=== PATIENT | female | born 1995 | race Caucasian/White ===

== ENCOUNTER 2017-09-28 13:19 | Emergency (ER) | payer MEDICAID, SELFPAY ==
[2017-09-28 13:28] VITALS: BP 128/70; PULSE 89; RESP 16; TEMP 36.5; O2SAT 99
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
[2017-09-28] MEDS: Lidocaine 2% Viscous 15 ML CUP PO (13:57)
[2017-09-28] MEDS: Normal Saline 1,000 ML 1000 ML IV (14:38)
[2017-09-28] MEDS: Omnipaque 350 MG/ML 100 ML BTL IJ (14:39)
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
== END 2017-09-28 16:01 | disposition home or self-care (01) ==
LOC: ER 11-25 03:49
PROVIDERS: Emergency Provider Emergency Medicine; PCP Nurse Practitioner Family
DX: T76.11XA Adult physical abuse, suspected, initial encounter (principal); S01.512A Laceration without foreign body of oral cavity, initial encounter; M54.2 Cervicalgia; J32.0 Chronic maxillary sinusitis; Y04.8XXA Assault by other bodily force, initial encounter
CPT/HCPCS: 70491; 90471; 96360; 99285; 99284; J3490

== ENCOUNTER 2018-05-01 19:02 | Outpatient (REF) | payer MEDICAID, SELFPAY ==
[2018-05-01 13:45] LABS: Abs Immature Grans 0.04 k/cumm (0.0-0.09); Absolute Basophil Count 0.05 k/cumm (0.0-0.2); Absolute Eosinophil Count 0.21 k/cumm (0.0-0.7); Absolute Lymphocyte Count 3.61 k/cumm (1.2-3.4); Absolute Monocyte Count 0.52 k/cumm (0.11-0.7); Basophils % 0.5; Eosinophils % 2.3; HCT 41.8 % (36.0-46.0); HGB 14.2 g/dL (12.0-15.5); Immature Grans % 0.4; Lymphocytes % 38.7; Mean Corpuscular Hemoglobin 31.7 pg (27.0-33.0); Mean Corpuscular Volume 93.3 fL (80-95); Mean Platelet Volume 10.7 fL (8.0-11.0); Monocytes % 5.6; Neutrophils % 52.5; Platelet Count 336 x1000/uL (130-400); RBC 4.48 m/cumm (4.00-5.20); RBC Distribution Width 12.4 % (11.7-14.6); White Blood Cell Count 9.33 k/cumm (4.4-10.8)
[2018-05-01 14:36] LABS: ALT 26 U/L (12-78); AST 19 U/L (15-37); Albumin 4.1 g/dL (3.4-5.0); Alkaline Phosphatase 74 U/L (46-116); BUN 10 mg/dL (7-18); Bilirubin, Total 0.4 mg/dL (0.2-1.0); CREATININE 0.72 mg/dL (0.55-1.02); Calcium 9.6 mg/dL (8.5-10.1); Chloride 104 mmol/L (98-107); Glucose 90 mg/dL (70-100); Potassium 4.3 mmol/L (3.5-5.1); Sodium 143 mmol/L (136-145); TSH (W/Ref FT4) 1.69 uIU/mL (0.358-3.74); Total Protein 7.2 g/dL (6.4-8.2); Vitamin B12 618 pg/mL (193-986)
== END 2018-05-01 19:22 ==
LOC: NCHCN 19:02
PROVIDERS: PCP Nurse Practitioner Family; Visit Provider Nurse Practitioner Family
DX: F41.9 Anxiety disorder, unspecified (principal); Z86.69 Personal history of other diseases of the nervous system and sense organs; F32.9 Major depressive disorder, single episode, unspecified
CPT/HCPCS: 80053; 82607; 84443; 85025

== ENCOUNTER 2018-05-13 11:00 | Outpatient (CLI) | payer MEDICAID, SELFPAY ==
--- NOTE | 2018-05-21 15:12 | PDOC.EEG ---
EEG: [facility] Department of Neurology LONG-TERM AMBULATORY EEG REPORT Date of Recordin05/13/18 at 10:04:18 to 05/16/18 at 12:42:03 Interpreting Physician: Dr. Carol Ann Gates PCP/Referring Provider: Marquita Mcmanus NP Reason for study: Ms. 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 Current Medications: albuterol sulfate [ProAir HFA] 2 inh INHALATION Q6H PRN PRN 09/27/15 valacyclovir 1,000 mg PO DAILY #30 tab-cap 04/17/16 PNV cmb#95-ferrous fumarate-FA [] 1 ea PO DAILY #90 tab-cap 05/07/17 Dexilant 30 mg PO DAILY #30 tab-cap 08/14/17 atomoxetine 25 mg capsule 25 mg PO DAILY cap 04/24/18 levetiracetam 500 mg tablet 500 mg PO BID #60 tab 05/01/18 METHODS: An 18-channel digitized electroencephalogram was recorded in the ambulatory setting with video. The 10/20 international system of electrode placement was used and bipolar and referential electrode montages were recorded. In addition to EEG the patient was monitored for EKG and by video. Activation procedures of photic stimulation and hyperventilation were performed if applicable. The duration of the recording was ~74 hours, however, only ~52 hours of EEG was captured due to battery issues. DESCRIPTION OF EEG: Waking background activity: During maximal wakefulness a 9-Hz posterior background rhythm was present which was well-modulated, symmetrical, reactive to eye opening, and of moderate voltage. Faster frequencies were present in the bilateral anterior head regions. There was a normal anterior-posterior voltage gradient. Drowsy and sleeping background activity: During drowsiness, there was attenuation of the posterior dominant background rhythm and vertex waves. Normal stage II and III sleep was present with symmetrical sleep spindles, K-complexes, and vertex waves with slowing of the background rhythm to delta/theta frequencies. REM sleep manifested by rapid lateral eye movements and faster background rhythms was recorded. Arousal was unremarkable. During sleep, she had bursts of moderate-amplitude, polymorphic generalized alpha activity lasting 1-6 seconds in duration. This was not epileptiform, but appears to be some sore of sleep variant. Interictal abnormalities: none. Ictal findings: No events reported or recorded. Activating Procedures: Photic stimulation was performed which produced a symmetrical posterior driving response at various flash frequencies. Hyperventilation was performed with moderate effort and produced no physiological slowing of the background. EKG: EKG revealed normal sinus rhythm while awake with sinus bradycardia during sleep. INTERPRETATION: This long-term EEG is normal during the awake and sleep states as well as during the activation procedures. No events were captured. 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 Epilepsy remains a clinical diagnosis and a normal EEG does not rule out epilepsy. Clinical correlation is advised. Carol Ann Gates MD
--- NOTE | 2018-05-21 15:15 | PDOC.EEG_ITS ---
EEG: [facility] Department of Neurology LONG-TERM AMBULATORY EEG REPORT Date of Recordin05/13/18 at 10:04:18 to 05/16/18 at 12:42:03 Interpreting Physician: Dr. Carol Ann Gates PCP/Referring Provider: Marquita Mcmanus NP Reason for study: Ms. 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 Current Medications: albuterol sulfate [ProAir HFA] 2 inh INHALATION Q6H PRN PRN 09/27/15 valacyclovir 1,000 mg PO DAILY #30 tab-cap 04/17/16 PNV cmb#95-ferrous fumarate-FA [] 1 ea PO DAILY #90 tab-cap 05/07/17 Dexilant 30 mg PO DAILY #30 tab-cap 08/14/17 atomoxetine 25 mg capsule 25 mg PO DAILY cap 04/24/18 levetiracetam 500 mg tablet 500 mg PO BID #60 tab 05/01/18 METHODS: An 18-channel digitized electroencephalogram was recorded in the ambulatory setting with video. The 10/20 international system of electrode placement was used and bipolar and referential electrode montages were recorded. In addition to EEG the patient was monitored for EKG and by video. Activation procedures of photic stimulation and hyperventilation were performed if applicable. The duration of the recording was ~74 hours, however, only ~52 hours of EEG was captured due to battery issues. DESCRIPTION OF EEG: Waking background activity: During maximal wakefulness a 9-Hz posterior background rhythm was present which was well-modulated, symmetrical, reactive to eye opening, and of moderate voltage. Faster frequencies were present in the bilateral anterior head regions. There was a normal anterior-posterior voltage gradient. Drowsy and sleeping background activity: During drowsiness, there was attenuation of the posterior dominant background rhythm and vertex waves. Normal stage II and III sleep was present with symmetrical sleep spindles, K- complexes, and vertex waves with slowing of the background rhythm to delta/theta frequencies. REM sleep manifested by rapid lateral eye movements and faster background rhythms was recorded. Arousal was unremarkable. During sleep, she had bursts of moderate-amplitude, polymorphic generalized alpha activity lasting 1-6 seconds in duration. This was not epileptiform, but appears to be some sore of sleep variant. Interictal abnormalities: none. Ictal findings: No events reported or recorded. Activating Procedures: Photic stimulation was performed which produced a symmetrical posterior driving response at various flash frequencies. Hyperventilation was performed with moderate effort and produced no physiological slowing of the background. EKG: EKG revealed normal sinus rhythm while awake with sinus bradycardia during sleep. INTERPRETATION: This long-term EEG is normal during the awake and sleep states as well as during the activation procedures. No events were captured. 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 Epilepsy remains a clinical diagnosis and a normal EEG does not rule out epilepsy. Clinical correlation is advised. Carol Ann Gates MD
== END 2018-05-13 11:20 ==
PROVIDERS: PCP Nurse Practitioner Family; Visit Provider Psychiatry & Neurology Neurology
DX: R56.9 Unspecified convulsions (principal)
CPT/HCPCS: 95953

== ENCOUNTER 2018-08-29 13:42 | Emergency (ER) | payer MEDICAID, SELFPAY ==
[2018-08-29 13:46] VITALS: BP 126/88; PULSE 106; RESP 14; TEMP 36.1; O2SAT 96
--- NOTE | 2018-08-29 14:01 | DI.CT_ITS ---
SYMPTOMS/DIAGNOSIS: C-SPINE TENDERNESS S/P FALL CT BRAIN, NONCONTRAST: Comparison is 06/24/15. There is a normal ibarra-white matter differentiation. The ventricles are intact. The basilar cisterns are patent. No acute intracranial hemorrhage, midline shift or mass effect is identified. The visualized paranasal sinuses show no fluid levels. The mastoid air cells are well pneumatized. The calvarium is intact. IMPRESSION: No acute intracranial process. CT SCAN OF THE CERVICAL SPINE: Multiple contiguous axial images of the cervical spine were obtained. Sagittal and coronal reformatted images were evaluated on the Siemens workstation. There are no priors for comparison. There is normal alignment of the cervical spine. No acute fractures or subluxations are seen. The soft tissues are unremarkable. The lung apices are clear. IMPRESSION: No acute fractures or subluxations in the cervical spine. The findings were discussed with the Emergency Department on the date of the examination.
--- NOTE | 2018-08-29 14:03 | ED.GENADUL_ITS ---
Discharge Plan Disposition Patient Disposition: HOME Discharge Details Chief Complaint: Nk/Back Pain Clinical Impression: Concussion, Cervical strain Primary Care Provider: Jose Schroeder ED Provider: Cj Woodard Home Meds and New Rx's Prescriptions: New ondansetron 4 mg tablet,disintegrating 4 mg PO BID Qty: 5 RF: 0 Continued atomoxetine [Strattera] 25 mg capsule 25 mg PO BID RF: 0 valacyclovir 1,000 MG tablet 1,000 mg PO DAILY Qty: 30 RF: 5 PNV cmb#95-ferrous fumarate-FA [] 1 EACH tablet 1 ea PO DAILY Qty: 90 RF: 4 Dexilant 30 MG capsule,biphase delayed releas 30 mg PO DAILY Qty: 30 RF: 5 levetiracetam 500 mg tablet 500 mg PO BID Qty: 60 RF: 11 albuterol sulfate [ProAir HFA] 200 PUFF HFA aerosol inhaler 2 inh Inhalation Q6H PRN PRNRF: 0 Discharge Instructions Instructions: Cervical Strain (ED), Concussion (ED) Additional Instructions: Continue to use [id number]-[id number] pain medication as needed for discomfort, stay well-hydrated, and rest over the next 3 days. Slowly advance activity as tolerated and return to the emergency department for any new or significant worsening of symptoms, severe headaches, persistent vomiting. Otherwise if not improving over the next week follow-up with your primary care provider for reassessment Referrals: Jose Schroeder, [employer] [Primary Care Provider] - (As needed for reassessment) Discharge Data Discharge Date/Time-TO BE ENTERED AT DEPARTURE: 08/29/18 14:51 Medical Decision Making Patient presenting the emergency department for chief complaint of neck pain. Patient states that yesterday evening she was drinking and slipped on a toy and fell hitting her head and having approximately a 2-minute loss of consciousness. Patient states that she remembers having some drinks and getting ready for the shower but denies any recollection of the fall, or the rest the evening is not completely easy to remember. Patient woke up this morning and her roommate informed her of the fall, of the loss of consciousness. Patient states that she has been nauseous and have headache since the event occurred but otherwise denies any numbness tingling, neurological deficits. Physical exam shows midline tenderness to C4-C5 with other otherwise diffuse tenderness throughout the cervical spine and left trapezius. No thoracic spine tenderness, no focal neurological deficits, cranial nerves II through XII intact, otherwise unremarkable exam with no obvious trauma noted. Given the patient was intoxicated, had fall, and significant loss of consciousness I do feel that radiological imaging of the head and C-spine is warranted. Patient was C- collared which I feel is appropriate. Pending results patient given acetaminophen and zofran. Review of radiological imaging and speaking with radiologist shows no acute findings. I feel that patient more likely has cervical strain and concussion. Patient encouraged to take nded-wev-[id number] pain medication as needed and was prescribed Zofran to help with her nausea. Patient was given a soft collar to help with cervical symptoms. Return precautions were discussed. After discussion of diagnosis and plan of care patient has no further needs, questions, or concerns and states clear understanding to return to the emergency department for any worsening symptoms. HPI General Mode of arrival: ambulatory . Date/Time Provider Initiated Documentation: 08/29/18 13:57 . Limitations to Documentation: no limitations . Information obtained by: patient and RN notes reviewed . History of Present Illness 23 year old F presents to the emergency department with the chief complaint of neck pain, headache, described as moderate, with intensity rated at 8. Quality is described as sharp, and is localized to the neck. Patient reports radiation to (lateral). Patient started experiencing this hour(s) (21) and it has been constant. Patient did receive the following treatments prior to arrival, none Related Data Home Medications Medication Instructions Recorded Confirmed albuterol sulfate [ProAir HFA] 2 inh INHALATION Q6H PRN PRN 09/27/15 08/29/18 valacyclovir 1,000 mg PO DAILY #30 tab-cap 04/17/16 08/29/18 PNV cmb#95-ferrous fumarate-FA 1 ea PO DAILY #90 tab-cap 05/07/17 04/24/18 [] Dexilant 30 mg PO DAILY #30 tab-cap 08/14/17 08/29/18 atomoxetine 25 mg capsule 25 mg PO BID cap 04/24/18 08/29/18 levetiracetam 500 mg tablet 500 mg PO BID #60 tab 05/01/18 08/29/18 ondansetron 4 mg PO BID #5 tab 08/29/18 Previous Rx's Medication Instructions Recorded PNV cmb#95-ferrous fumarate-FA 1 ea PO DAILY #90 tab-cap 05/07/17 [] Dexilant 30 mg PO DAILY #30 tab-cap 08/14/17 levetiracetam 500 mg tablet 500 mg PO BID #60 tab 05/01/18 ondansetron 4 mg PO BID #5 tab 08/29/18 Allergies Allergy/AdvReac Type Severity Reaction Status Date / Time aspirin AdvReac Intermediate GI Bleeding Unverified 08/29/18 14:00 codeine AdvReac Intermediate Nausea Unverified 08/29/18 14:00 General Stated Complaint: Headache SUNDAR: 4 Review of Systems Constitutional Reports chills, Reports fever(s) and Denies frequent falls Eyes Denies change in vision ENT Reports neck pain Cardiovascular Denies chest pain and Denies dyspnea Respiratory Denies dyspnea Gastrointestinal Denies abdominal pain and Reports nausea Musculoskeletal Reports as per HPI, Denies muscle weakness, Reports neck pain, Denies numbness, Reports stiffness and Denies tingling Neurologic Reports as per HPI, Denies frequent falls, Denies focal weakness, Reports memory loss, Denies numbness and Denies tingling Psychiatric Reports memory loss [facility] Medical History ADD (attention deficit disorder) (Acute) Asthma (Chronic) Cognitive developmental delay (Acute) Depression (Chronic) Depression (Resolved) Depression (Resolved 12/23/13) ETOH abuse (Chronic) Focal epilepsy (Acute) Genital herpes (Resolved) Heartburn HSV infection (Chronic) Hx of gonorrhea Hx of herpes genitalis (Acute 12/23/13) Surgical History EGD - MAC (05/11/16) No history of previous surgery (Acute) Family History Other Asthma Depression Diabetes Seizures Social History Smoking/Tobacco Use Status: Current every day Tobacco Type: cigarettes Alcohol Intake: current Alcohol Intake frequency: other Drug use: Never Substance use type: does not use Household members: significant other Number of Children: 1 Do you feel safe in your relationship?: Yes Additional Social history: She has one child in the custody of her mother. Her fiance has 3 children (not in his custody). She binge drinks alcohol. Exam [facility] Head: normal to inspection, no palpable skull fracture, normocephalic, atraumatic, no abrasions, no Fernandez's sign, no lacerations, no palpable skull fracture, no raccoon eyes, no scalp tenderness and No periorbital ecchymosis Ears: hearing grossly normal bilaterally, external ears normal and TM's normal bilaterally General nose exam: external nose normal Mouth: oral mucosae normal, lip normal and tongue normal Throat: posterior oropharynx normal, tonsils normal and uvula midline Eyes General: appearance normal, both eyes and all related structures Visual Bernard: normal visual bernard by confrontation Alignment and Position: alignment normal Periorbital: periorbital findings normal Eyelids: eyelids normal Pupils: PERRL EOM: EOM intact bilaterally Neck Neck: normal visual inspection, no lymphadenopathy, trachea midline, supple and no anterior neck swelling Resp Effort & Inspection: normal respiratory effort and able to speak in complete sentences Auscultation: clear to auscultation bilaterally Cardio Rate: regular rate Rhythm: regular rhythm Heart Sounds: S1 normal and S2 normal Back/Spine/Pelvis Cervical Spine: normal cervical lordosis, collar present, cervical muscular tenderness (left sided), cervical spinal tenderness (Diffuse but most tender C4&5) and No step off deformity Thoracic/Lumbar Spine: thoracic and lumbar spine normal to inspection, No paraspinal tenderness and No thoracic spinal tenderness Neuro General: alert, awake, oriented x3, gait normal, tone normal, moves all extremities, normal light touch, pain and propioception, no focal motor deficits, CN's II-XI intact bilaterally and not confused Course Vital Signs Temperature 36.1 C L 08/29/18 13:46 Pulse 106 H 08/29/18 13:46 Respiratory Rate 14 08/29/18 13:46 Blood Pressure 126/88 08/29/18 13:46 Pulse Oximetry 96 08/29/18 13:46 Temperature 36.1 C L 08/29/18 13:46 Temperature Source Temporal Artery Scan 08/29/18 13:46 Pulse 106 H 08/29/18 13:46 Respiratory Rate 14 08/29/18 13:46 Respiratory Effort 08/29/18 13:46 Blood Pressure 126/88 08/29/18 13:46 Pulse Oximetry 96 08/29/18 13:46 Oxygen Delivery Method Room Air 08/29/18 13:46 Oxygen Flow Rate 0 08/29/18 13:46 Pain Level 8 08/29/18 13:58
[2018-08-29] MEDS: Acetaminophen 500 MG TAB 1000 MG PO (14:27)
[2018-08-29] MEDS: Ondansetron O.D.T. 4 MG TABEF PO (14:27)
--- NOTE | 2018-08-29 14:30 | NUR.NOTE ---
pt medicated as per mdo provided with ice pack Nursing Note:
[2018-08-29 14:52] VITALS: BP 122/68; PULSE 92; RESP 18; TEMP 36.6; O2SAT 98
== END 2018-08-29 14:51 | disposition home or self-care (01) ==
LOC: ER 14:45
PROVIDERS: Emergency Provider Nurse Practitioner Family; PCP Nurse Practitioner Family
DX: S06.0X1A Concussion with loss of consciousness of 30 minutes or less, initial encounter (principal); S16.1XXA Strain of muscle, fascia and tendon at neck level, initial encounter; W01.0XXA Fall on same level from slipping, tripping and stumbling without subsequent striking against object, initial encounter
CPT/HCPCS: 81025; 99284; 70450; 72125; L0120; L0172

== ENCOUNTER 2018-12-23 16:34 | Emergency (ER) | payer MEDICAID, SELFPAY ==
[2018-12-23] VITALS (30 sets, daily range): BP systolic 111–125; BP diastolic 68–83; PULSE 66–101; RESP 11–26; TEMP 36.3–37.3; O2SAT 95–100
[2018-12-23 17:02] LABS: Bilirubin Negative (Negative); Blood Trace-intact (Negative); Clarity Cloudy (Clear); Glucose Negative (Negative); Ketones Negative (Negative); Leukocyte Esterase Trace (Negative); Nitrite Negative (Negative); Urobilinogen 0.2 EU/dL (Up TO 0.2); pH 6.5 (5-8)
[2018-12-23 17:10] LABS: Bacteria Moderate HPF (Negative); C & S Indicated? No/Sq. Contamination; Casts Negative LPF (Negative); Crystals Negative HPF (Negative); Epithelial Cells Many HPF (Negative); Mucus Negative (Negative); Other Cells Negative (Negative); RBC 0-2 (0-2)
--- NOTE | 2018-12-23 17:26 | ED.GENADUL_ITS ---
Discharge Plan Disposition Patient Disposition: HOME Condition: Improving Discharge Details Chief Complaint: Abd Prob Clinical Impression: Nausea & vomiting, Acute hypokalemia Primary Care Provider: Jose Schroeder ED Provider: Lalito Jaquez Home Meds and New Rx's Prescriptions: New chlordiazepoxide HCl 25 mg capsule 50 mg PO .q24 PRN (Reason: alcohol withdrawal) Qty: 10 RF: 0 Continued atomoxetine [Strattera] 25 mg capsule 25 mg PO BID RF: 0 valacyclovir 1,000 MG tablet 1,000 mg PO DAILY Qty: 30 RF: 5 PNV cmb#95-ferrous fumarate-FA [] 1 EACH tablet 1 ea PO DAILY Qty: 90 RF: 4 Dexilant 30 MG capsule,biphase delayed releas 30 mg PO DAILY Qty: 30 RF: 5 levetiracetam 500 mg tablet 500 mg PO BID Qty: 60 RF: 11 albuterol sulfate [ProAir HFA] 200 PUFF HFA aerosol inhaler 2 inh Inhalation Q6H PRN PRNRF: 0 ondansetron 4 mg tablet,disintegrating 4 mg PO BID Qty: 5 RF: 0 Discharge Instructions Instructions: Hypokalemia (ED), Acute Nausea and Vomiting (ED) Additional Instructions: At this time your potassium has normalized. You have been well hydrated, and you are tolerating food. CT scan shows no evidence of an acute surgical pathology. To help with your alcohol withdrawal please take the Librium as directed. You can take 50 mg daily, or if need be you can take 100 mg/day for the next few days only as needed for your withdrawal symptoms. Do not take with any additional psychiatric or depression medications. Do not take with any Ativan or Versed. Please stick with an easy diet over the next few days to help with your irritated stomach. Avoid any spicy foods, tomato-based products or citrus products. Make sure you are eating easy foods such as bananas, toast, mashed potatoes. If you notice any worsening of your symptoms, or any new symptoms such as vomiting, diarrhea, fever, chills, shortness of breath, chest pain, numbness, weakness, or fainting , please return immediately to the emergency department for reevaluation. Please follow up with your primary care provider as soon as possible for reassessment and reevaluation. As always, it was a pleasure participating in your medical care today. Referrals: Jose Schroeder NP [Primary Care Provider] - Discharge Data Discharge Date/Time-TO BE ENTERED AT DEPARTURE: 12/23/18 23:55 Medical Decision Making <Prabhjot Interiano MD - Last Filed: 12/24/18 08:18> 23-year-old female who presents with abdominal pain that is been present over 2 to 3 days time, such with nausea and vomiting, intolerance of p.o. She will notes been drinking vodka on a near daily basis for a couple of weeks. She arrives afebrile with normal vital signs, tenderness in the upper abdomen. Differential diagnosis includes pancreatitis, gastritis,, cystitis. IV placed, labs obtained, patient given fluids, antiemetic. Patient has white blood cell count is elevated at 14, hematocrit 39, platelets 314. Sodium 144, potassium low at 3.1, chloride 104, bicarb 28, BUN 11, creatinine 0.5. AST 38, ALT 79, total bili 0.3. Lipase 140. Urinalysis appears contaminated with many epithelial cells and trace leuk esterase. Hypokalemia likely due to GI losses and supplemented in the ED. Patient referred for CT images: Note of an ovulating left ovarian follicle. Small left upper pole renal cyst. No other acute findings. We will continue to hydrate patient, she will require recheck of potassium. Wi ll sign out to Dr. Jaquez pending repeat electrolytes and reevaluation. Lab Data Lab results reviewed: Yes I reviewed the patient's lab results. Labs: Laboratory Results - last 24 hr 12/23/18 12/23/18 12/23/18 16:45 17:07 17:07 WBC 14.97 H RBC 4.19 Hgb 13.6 Hct 39.4 MCV 94.0 MCH 32.5 MCHC 34.5 RDW 11.4 L Plt Count 314 MPV 10.3 Immature Gran % 0.2 Neutrophils % 69.4 Lymphocytes % 25.4 Monocytes % 4.0 Eosinophils % 0.7 Basophils % 0.3 Absolute Neutrophils 10.39 H Absolute Lymphocytes 3.80 H Absolute Monocytes 0.60 Absolute Eosinophils 0.10 Absolute Basophils 0.04 Sodium 144 Potassium 3.1 L Chloride 104 Carbon Dioxide 28.0 Anion Gap 12.0 H BUN 11 Creatinine 0.58 Estimated GFR/1.73 m2 >= 60.00 Glucose 80 Calcium 8.6 Magnesium 1.4 L Total Bilirubin 0.3 AST 38 H ALT 79 H Alkaline Phosphatase 76 Total Protein 7.4 Albumin 4.2 Lipase 140 Beta HCG, Quant Urine Color Yellow Urine Clarity Cloudy Urine pH 6.5 Ur Specific [place] 1.020 Urine Protein 30 H Urine Ketones Negative Urine Blood Trace-intact H Urine Nitrite Negative Urine Bilirubin Negative Urine Urobilinogen 0.2 Ur Leukocyte Esterase Trace H Urine RBC 0-2 Urine WBC 3-5 Ur Epithelial Cells Many Urine Crystals Negative Urine Bacteria Moderate Urine Casts Negative Urine Mucus Negative Urine Other Negative Ur Culture Indicated? No/sq. contamination Urine Glucose Negative 12/23/18 17:07 WBC RBC Hgb Hct MCV MCH MCHC RDW Plt Count MPV Immature Gran % Neutrophils % Lymphocytes % Monocytes % Eosinophils % Basophils % Absolute Neutrophils Absolute Lymphocytes Absolute Monocytes Absolute Eosinophils Absolute Basophils Sodium Potassium Chloride Carbon Dioxide Anion Gap BUN Creatinine Estimated GFR/1.73 m2 Glucose Calcium Magnesium Total Bilirubin AST ALT Alkaline Phosphatase Total Protein Albumin Lipase Beta HCG, Quant 1 Urine Color Urine Clarity Urine pH Ur Specific [place] Urine Protein Urine Ketones Urine Blood Urine Nitrite Urine Bilirubin Urine Urobilinogen Ur Leukocyte Esterase Urine RBC Urine WBC Ur Epithelial Cells Urine Crystals Urine Bacteria Urine Casts Urine Mucus Urine Other Ur Culture Indicated? Urine Glucose <Laltio Jaquez, DO - Last Filed: 12/23/18 23:25> Case is signed out to me by my colleague Dr. Prabhjot Interiano. Please refer to his documentation for initial assessment, and plan. Case is signed out pending repeat laboratory work-up and reassessment. On reassessment the patient's potassium has normalized. Repeat abdominal exam shows no evidence of acute surgical abdomen. Vital signs are stable. She is tolerated p.o., crackers, sandwich, and beef jerky. Clinically she shows no evidence of an acute surgical abdomen, or life-threatening etiology at this time. She has no history of seizures secondary to alcohol withdrawal. She has been taking her regular Keppra for seizures as directed. She does feel slightly jittery, however on exam she does show notable stableness, no tremulousness for the hands, other signs of significant withdrawal. We did go with Librium here, and will give Librium to go home with. Recommended dietary changes, and sticking with easy foods. Discussed red flags which to return the importance of close follow-up. I have extensively reviewed the treatment plan and discharge instructions with the patient and their family. I have addressed all patient concerns at this time. The patient and family was made aware of what symptoms to monitor for that would warrant a return to the emergency department. Discussed the plan with the patient and family, they demonstrate verbal understanding and agreement with our assessment and plan at this time. HPI <Prabhjot Interiano MD - Last Filed: 12/24/18 08:18> General Mode of arrival: ambulatory . Date/Time Provider Initiated Documentation: 12/23/18 16:36 . Limitations to Documentation: no limitations . Information obtained by: patient . History of Present Illness 23 year old F presents to the emergency department with the chief complaint of Nausea and vomiting, central to right abdominal pain, described as moderate, Quality is described as dull and constant, and is localized to the abdomen. Patient reports radiation to back and flank. Patient started experiencing this day(s) No relieving factors improve symptom(s), Eating worsens symptoms . Patient notes no other symptoms.. Patient did receive the following treatments prior to arrival, none Related Data Home Medications Medication Instructions Recorded Confirmed albuterol sulfate [ProAir HFA] 2 inh INHALATION Q6H PRN PRN 09/27/15 08/29/18 valacyclovir 1,000 mg PO DAILY #30 tab-cap 04/17/16 08/29/18 PNV cmb#95-ferrous fumarate-FA 1 ea PO DAILY #90 tab-cap 05/07/17 04/24/18 [] Dexilant 30 mg PO DAILY #30 tab-cap 08/14/17 08/29/18 atomoxetine 25 mg capsule 25 mg PO BID cap 04/24/18 08/29/18 levetiracetam 500 mg tablet 500 mg PO BID #60 tab 05/01/18 08/29/18 ondansetron 4 mg PO BID #5 tab 08/29/18 chlordiazepoxide HCl 50 mg PO .q24 PRN #10 cap 12/23/18 Previous Rx's Medication Instructions Recorded PNV cmb#95-ferrous fumarate-FA 1 ea PO DAILY #90 tab-cap 05/07/17 [] Dexilant 30 mg PO DAILY #30 tab-cap 08/14/17 levetiracetam 500 mg tablet 500 mg PO BID #60 tab 05/01/18 ondansetron 4 mg PO BID #5 tab 08/29/18 chlordiazepoxide HCl 50 mg PO .q24 PRN #10 cap 12/23/18 Allergies Allergy/AdvReac Type Severity Reaction Status Date / Time aspirin AdvReac Intermediate GI Bleeding Unverified 12/23/18 16:42 codeine AdvReac Intermediate Nausea Unverified 12/23/18 16:42 General Stated Complaint: Abd Prob SUNDAR: 3 Review of Systems <Prabhjot Interiano MD - Last Filed: 12/24/18 08:18> Narrative: 6 systems reviewed and otherwise negative. Last menstrual period 2 weeks ago. Heavy daily drinking recently. PFSH <Prabhjot Interiano MD - Last Filed: 12/24/18 08:18> Medical History ADD (attention deficit disorder) (Acute) Asthma (Chronic) Cognitive developmental delay (Acute) Depression (Chronic) Depression (Resolved) Depression (Resolved 12/23/13) ETOH abuse (Chronic) Focal epilepsy (Acute) Genital herpes (Resolved) Heartburn HSV infection (Chronic) Hx of gonorrhea Rx 08/2016. 10/2016. Neg LIDA. Hx of herpes genitalis (Acute 12/23/13) Family History Other Asthma Depression Diabetes Seizures Social History Smoking/Tobacco Use Status: Current every day Tobacco Type: cigarettes Smoking packs per day: 1 Smoking cigarettes per day: 20.0 Alcohol Intake: current Alcohol Intake frequency: 3 or more drinks per day Alcohol type: hard liquor Drug use: Daily Substance use type: marijuana Household members: significant other Number of Children: 1 Do you feel safe in your relationship?: Yes Additional Social history: She has one child in the custody of her mother. Her fiance has 3 children (not in his custody). She binge drinks alcohol. Exam <Prabhjot Interiano MD - Last Filed: 12/24/18 08:18> Narrative Exam Narrative: GEN: awake, alert, oriented 3. Pleasant, well groomed, interactive. HEAD: Normocephalic, atraumatic ENT: Mucous membranes moist, oropharynx unremarkable, External ear exam unremarkable EYES: PERRL, EOMI NECK: Full ROM, no SUSY, no menigismus CHEST/RESP: Nontender, clear to auscultation bilateral, no wheeze/rhonchi/rales CARDIOVASCULAR: RRR, no murmur, rub long. 2+ Rad pulse bilateral ABDOMEN: Soft, tender mid to upper abdomen, no mass. +Bowel sounds EXT: Full ROM, no edema, no rash Neuro: Grossly normal neurologic exam, conversant, interactive. Psych: Speech fluent, thoughts congruent, affect normal Course <Prabhjot Interiano MD - Last Filed: 12/24/18 08:18> Vital Signs Vital signs: Vital Signs Temperature 36.3 C L 12/23/18 16:37 Pulse 84 12/23/18 16:37 Respiratory Rate 18 12/23/18 16:37 Blood Pressure 125/78 12/23/18 16:37 Pulse Oximetry 97 12/23/18 16:37 Temperature 36.3 C L 12/23/18 16:37 Temperature Source Skin 12/23/18 16:37 Pulse 84 12/23/18 16:37 Respiratory Rate 18 12/23/18 16:37 Respiratory Effort Non-Labored 12/23/18 16:42 Blood Pressure 125/78 12/23/18 16:37 Blood Pressure Position Sitting 12/23/18 16:37 Pulse Oximetry 97 12/23/18 16:37 Oxygen Delivery Method Room Air 12/23/18 16:37 Oxygen Flow Rate 0 12/23/18 16:37 Pain Level 9 12/23/18 16:37 Comment 12/23/18 16:37 Lab/Test Results Lab/Test Results: Laboratory Tests Range/Units 12/23/18 16:45 Urine Color (Yellow) Yellow Urine Clarity (Clear) Cloudy Urine pH (5-8) 6.5 Ur Specific [place] (1.005-1.025) 1.020 Urine Protein (Negative) mg/dL 30 H Urine Ketones (Negative) mg/dL Negative Urine Blood (Negative) Trace-intact H Urine Nitrite (Negative) Negative Urine Bilirubin (Negative) Negative Urine Urobilinogen (Up TO 0.2) EU/dL 0.2 Ur Leukocyte Esterase (Negative) Trace H Urine RBC (0-2) 0-2 Urine WBC (0-5) HPF 3-5 Ur Epithelial Cells (Negative) HPF Many Urine Crystals (Negative) HPF Negative Urine Bacteria (Negative) HPF Moderate Urine Casts (Negative) LPF Negative Urine Mucus (Negative) Negative Urine Other (Negative) Negative Ur Culture Indicated? No/sq. contamination Urine Glucose (Negative) mg/dL Negative Sign Out <Prabhjot Interiano MD - Last Filed: 12/24/18 08:18> Sign Out Data: Sign Out Comment: Please follow-up repeat potassium after supplementation. Last updated by Prabhjot Interiano MD at 12/23/18 20:05
[2018-12-23] MEDS: Ondansetron 4 MG/2 ML VIAL IVP ×2 (17:41→20:08)
[2018-12-23] MEDS: Normal Saline 1,000 ML 1000 ML IV (17:42)
[2018-12-23] MEDS: Normal Saline Flush 10 ML SYR IVP (17:42)
[2018-12-23 17:43] LABS: Abs Immature Grans 0.03 k/cumm (0.0-0.09); Absolute Basophil Count 0.04 k/cumm (0.0-0.2); Absolute Neutrophil Count 10.39 k/cumm (1.2-6.7); Basophils % 0.3; Eosinophils % 0.7; HCT 39.4 % (36.0-46.0); HGB 13.6 g/dL (12.0-15.5); Immature Grans % 0.2; Lymphocytes % 25.4; Mean Corp. HGB Concentration 34.5 g/dL (32.0-36.0); Mean Corpuscular Hemoglobin 32.5 pg (27.0-33.0); Mean Platelet Volume 10.3 fL (8.0-11.0); Neutrophils % 69.4; Platelet Count 314 x1000/uL (130-400); RBC 4.19 m/cumm (4.00-5.20); RBC Distribution Width 11.4 % (11.7-14.6); White Blood Cell Count 14.97 k/cumm (4.4-10.8)
[2018-12-23 18:01] LABS: ALT 79 U/L (14-59); AST 38 U/L (15-37); Albumin 4.2 g/dL (3.4-5.0); Alkaline Phosphatase 76 U/L (46-116); BUN 11 mg/dL (7-18); Bilirubin, Total 0.3 mg/dL (0.2-1.0); CREATININE 0.58 mg/dL (0.55-1.02); Calcium 8.6 mg/dL (8.5-10.1); Chloride 104 mmol/L (98-107); Glucose 80 mg/dL (70-100); Lipase 140 U/L (73-393); Magnesium 1.4 mg/dL (1.8-2.4); Potassium 3.1 mmol/L (3.5-5.1); Sodium 144 mmol/L (136-145); Total Protein 7.4 g/dL (6.4-8.2)
[2018-12-23 18:06] LABS: HCG Quant, Pregnancy 1 mIU/mL (1-3)
--- NOTE | 2018-12-23 18:36 | DI.CT_ITS ---
EXAM: CT ABDOMEN PELVIS W CLINICAL HISTORY: Central to right upper abdominal pain TECHNIQUE: CT examination of the abdomen and pelvis was performed with a bolus infusion of 100 cc's of Omnipaque 350. COMPARISON: No exams were available for comparison FINDINGS: Images obtained through the lung bases are unremarkable. Liver, spleen and pancreas appear normal. Gallbladder and bile ducts are CT normal. Adrenals and kidneys are unremarkable. No evidence of u rinary tract obstruction. Appendix is normal. No focal bowel pathology. Abdominal aorta is of norm al diameter and no major vascular abnormality is seen. No significant abdominal wall hernia seen. N o abdominal or pelvic adenopathy seen. Probable collapsed left ovarian cysts/corpus luteum. Reproductive structures unremarkable. No free fluid in the pelvis. IMPRESSION: No evidence of acute intra-abdominal process.
[2018-12-23] MEDS: Pantoprazole 40 MG VIAL IVP (19:03)
[2018-12-23] MEDS: HYDROmorphone 2 MG/ML VIAL 0.5 MG IVP ×2 (19:04→20:08)
[2018-12-23] MEDS: Potassium Chloride 20 MEQ TABCR PO (19:04)
[2018-12-23] MEDS: Omnipaque 350 MG/ML 100 ML BTL IJ (19:36)
--- NOTE | 2018-12-23 19:53 | DI.VRAD_ITS ---
PROCEDURE INFORMATION: Exam: CT Abdomen And Pelvis With Contrast Exam date and time: 12/23/2018 7:32 PM Clinical history: 23 years old, female; Other: Central to right upper abdominal pain TECHNIQUE: Imaging protocol: Computed tomography of the abdomen and pelvis with intravenous contrast. Radiation optimization: All CT scans at this facility use at least one of these dose optimization techniques: automated exposure control; mA and/or kV adjustment per patient size (includes targeted exams where dose is matched to clinical indication); or iterative reconstruction. Contrast material: OMNIPAQUE 350; Contrast volume: 100 ml; Contrast route: IV; COMPARISON: US PELVIS TRANSVAG 05/07/2016 3:17 PM FINDINGS: Lungs: There are dependent atelectatic changes at the lung bases. Heart: The visualized portions of the heart and pericardium are unremarkable. Liver: The liver is within normal limits. Gallbladder and bile ducts: The gallbladder is unremarkable. Pancreas: The pancreas is within normal limits. Spleen: The spleen is within normal limits. Adrenals: The adrenal glands are unremarkable. Kidneys and ureters: There is a small left upper pole renal cyst measuring approximately 1.2 cm. Otherwise the kidneys are within normal limits. Stomach and bowel: Unremarkable. No obstruction. No mucosal thickening. Appendix: No evidence of appendicitis. Intraperitoneal space: Unremarkable. No free air. No significant fluid collection. Vasculature: Unremarkable. No abdominal aortic aneurysm. Lymph nodes: No enlarged lymph nodes. Bladder: The urinary bladder is within normal limits. Reproductive: The uterus is anteriorly flexed. There is an ovulating left ovarian follicle. Bones/joints: The visualized bony structures are within normal limits. Soft tissues: Unremarkable. IMPRESSION: Small left upper pole renal cyst. Ovulating left ovarian follicle Dictated and Authenticated by: Juan Francisco Young MD. Ordering:ALIREZA Rick MD
[2018-12-23] MEDS: POTASSIUM CHLORIDE/0.9% NACL 1,000 ML 150 MEQ IV (20:09)
[2018-12-23] MEDS: LORazepam 2 MG/ML VIAL 1 MG IVP (20:21)
[2018-12-23] MEDS: MAGNESIUM SULFATE 1 GM/100 ML BAG IVPB (20:22)
[2018-12-23] MEDS: HYDROmorphone 2 MG/ML VIAL (21:55)
[2018-12-23] MEDS: chlordiazePOXIDE 25 MG CAP 50 MG PO (22:37)
[2018-12-23 22:54] LABS: Anion Gap 9.7 mmol/L (3-11); BUN 7 mg/dL (7-18); CO2 25.3 mmol/L (21.0-32.0); CREATININE 0.54 mg/dL (0.55-1.02); Calcium 7.8 mg/dL (8.5-10.1); Chloride 105 mmol/L (98-107); Glucose 76 mg/dL (70-100); Potassium 3.5 mmol/L (3.5-5.1); Sodium 140 mmol/L (136-145)
== END 2018-12-23 23:55 | disposition home or self-care (01) ==
PROVIDERS: Emergency Medicine; Emergency Provider Student in an Organized Health Care Education/Training Program; PCP Nurse Practitioner Family
DX: R11.2 Nausea with vomiting, unspecified (principal); E87.6 Hypokalemia
CPT/HCPCS: 36415; 80048; 80053; 81025; 83690; 96361; 96365; 96375; 96376; 99285; 74177; 81003; 81015; 83735; 84702; 85025; 99284; J2060; J2405; J3475; J3490

== ENCOUNTER 2019-01-05 18:39 | Emergency (ER) | payer MEDICAID, SELFPAY ==
[2019-01-05 18:43] VITALS: BP 122/78; PULSE 89; RESP 20; TEMP 37.1; O2SAT 95
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
[2019-01-05] MEDS: Ondansetron O.D.T. 4 MG TABEF (19:25)
[2019-01-05] MEDS: Ondansetron 4 MG/2 ML VIAL (19:48)
[2019-01-05] MEDS: Normal Saline 1,000 ML 1000 ML IV (19:49)
[2019-01-05] MEDS: Normal Saline Flush 10 ML SYR IVP ×2 (19:50→20:30)
[2019-01-05 20:01] LABS: Abs Immature Grans 0.03 k/cumm (0.0-0.09); Absolute Basophil Count 0.05 k/cumm (0.0-0.2); Absolute Eosinophil Count 0.21 k/cumm (0.0-0.7); Absolute Lymphocyte Count 3.95 k/cumm (1.2-3.4); Absolute Monocyte Count 0.59 k/cumm (0.11-0.7); Absolute Neutrophil Count 5.49 k/cumm (1.2-6.7); Basophils % 0.5; HCT 43.1 % (36.0-46.0); HGB 14.8 g/dL (12.0-15.5); Immature Grans % 0.3; Lymphocytes % 38.3; Mean Corp. HGB Concentration 34.3 g/dL (32.0-36.0); Mean Corpuscular Hemoglobin 32.4 pg (27.0-33.0); Mean Corpuscular Volume 94.3 fL (80-95); Mean Platelet Volume 10.5 fL (8.0-11.0); Monocytes % 5.7; Neutrophils % 53.2; Platelet Count 305 x1000/uL (130-400); RBC 4.57 m/cumm (4.00-5.20); RBC Distribution Width 11.9 % (11.7-14.6); White Blood Cell Count 10.32 k/cumm (4.4-10.8)
[2019-01-05 20:13] LABS: ALT 59 U/L (14-59); AST 28 U/L (15-37); Albumin 4.2 g/dL (3.4-5.0); Alkaline Phosphatase 97 U/L (46-116); Anion Gap 11.3 mmol/L (3-11); BUN 7 mg/dL (7-18); Bilirubin, Total 0.1 mg/dL (0.2-1.0); CO2 25.7 mmol/L (21.0-32.0); CREATININE 0.65 mg/dL (0.55-1.02); Calcium 8.9 mg/dL (8.5-10.1); Chloride 105 mmol/L (98-107); Glucose 94 mg/dL (70-100); Potassium 3.4 mmol/L (3.5-5.1); Sodium 142 mmol/L (136-145); Total Protein 7.9 g/dL (6.4-8.2)
[2019-01-05] MEDS: Omnipaque 350 MG/ML 100 ML BTL IJ (20:22)
[2019-01-05] MEDS: Prochlorperazine 10 MG/2 ML VIAL (20:30)
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
[2019-01-05] MEDS: Ketorolac 30 MG/ML VIAL IVP (20:48)
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
[2019-01-05] MEDS: Ondansetron O.D.T. 4 MG TABEF, 3 TABS/BTL PO (22:15)
[2019-01-05 22:20] VITALS: BP 102/66; PULSE 91; RESP 18; TEMP 36.7; O2SAT 98
== END 2019-01-05 22:21 | disposition home or self-care (01) ==
PROVIDERS: Emergency Provider Physician Assistant; PCP Nurse Practitioner Family
DX: S00.83XA Contusion of other part of head, initial encounter (principal); S00.03XA Contusion of scalp, initial encounter; S20.211A Contusion of right front wall of thorax, initial encounter; R10.11 Right upper quadrant pain; Y04.0XXA Assault by unarmed brawl or fight, initial encounter
CPT/HCPCS: 74177; 80053; 81025; 99285; 70450; 70486; 71260; 72125; 85025; 99284; J0780; J1885; J2405; J3490

== ENCOUNTER 2019-04-01 09:42 | Emergency (ER) | payer MEDICAID, SELFPAY ==
[2019-04-01 09:48] VITALS: BP 146/80; PULSE 114; RESP 18; TEMP 36.6; O2SAT 98
[2019-04-01 10:06] LABS: Bilirubin Negative (Negative); Blood Negative (Negative); Clarity Clear (Clear); Glucose Negative (Negative); Ketones Negative (Negative); Leukocyte Esterase Moderate (Negative); Nitrite Negative (Negative); Specific Gravity 1.015 (1.005-1.025)
[2019-04-01] MEDS: Normal Saline Flush 10 ML SYR IVP (10:13)
[2019-04-01] MEDS: Normal Saline 1,000 ML 1000 ML IV (10:13)
[2019-04-01] MEDS: Ondansetron 4 MG/2 ML VIAL IVP (10:13)
[2019-04-01 10:27] LABS: Epithelial Cells Many HPF (Negative)
[2019-04-01 10:28] LABS: C & S Indicated? No/Sq. Contamination
[2019-04-01 10:35] LABS: Abs Immature Grans 0.03 k/cumm (0.0-0.09); Absolute Eosinophil Count 0.11 k/cumm (0.0-0.7); Absolute Monocyte Count 0.84 k/cumm (0.11-0.7); Basophils % 0.1; Eosinophils % 0.8; HCT 41.1 % (36.0-46.0); HGB 14.3 g/dL (12.0-15.5); Immature Grans % 0.2 %; Lymphocytes % 16.6; Mean Corp. HGB Concentration 34.8 g/dL (32.0-36.0); Mean Corpuscular Volume 89.2 fL (80-95); Mean Platelet Volume 10.5 fL (8.0-11.0); Monocytes % 6.2; Neutrophils % 76.1; Platelet Count 335 x1000/uL (130-400); RBC 4.61 m/cumm (4.00-5.20); RBC Distribution Width 11.7 % (11.7-14.6); White Blood Cell Count 13.52 k/cumm (4.4-10.8)
[2019-04-01 10:41] LABS: Absolute Basophil Count 0.01 k/cumm (0.0-0.2); Absolute Lymphocyte Count 2.24 k/cumm (1.2-3.4); Absolute Neutrophil Count 10.29 k/cumm (1.2-6.7)
[2019-04-01 10:55] LABS: ALT 19 U/L (14-59); AST 11 U/L (15-37); Albumin 4.1 g/dL (3.4-5.0); Alkaline Phosphatase 66 U/L (46-116); Anion Gap 12.1 mmol/L (3-11); BUN 7 mg/dL (7-18); Bilirubin, Total 0.6 mg/dL (0.2-1.0); CO2 24.9 mmol/L (21.0-32.0); CREATININE 0.66 mg/dL (0.55-1.02); Calcium 9.5 mg/dL (8.5-10.1); Chloride 102 mmol/L (98-107); Glucose 97 mg/dL (74-106); Magnesium 1.6 mg/dL (1.8-2.4); Potassium 3.5 mmol/L (3.5-5.1); Sodium 139 mmol/L (136-145); Total Protein 7.4 g/dL (6.4-8.2)
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
--- NOTE | 2019-04-01 11:03 | DI.US_ITS ---
EXAM: US OB 1ST TRIMESTER CLINICAL HISTORY: , Abdominal pain n/v/d TECHNIQUE: Ultrasound performed using standard protocol. Transabdominal and transvaginal exams wer e performed. COMPARISON: No exams were available for comparison FINDINGS: A gestational sac is seen within the endometrium and appears appropriately positioned. The crown-rum p length measurements correspond to 8 weeks 2 days. cardiac activity is demonstrated at 175 be ats per minute. The yolk sac is seen. There is a small amount of free fluid in the cul-de-sac. Ova avinash are unremarkable. IMPRESSION: Single viable intrauterine gestation of 8 weeks 2 days.
[2019-04-01] MEDS: Magnesium Chloride 64 MG TABCR PO (11:55)
[2019-04-01 12:18] VITALS: BP 108/68; PULSE 72; RESP 18; TEMP 36.6; O2SAT 99
[2019-04-01 12:46] VITALS: BP 115/56; PULSE 79; RESP 14; TEMP 36.6; O2SAT 99
== END 2019-04-01 12:45 | disposition home or self-care (01) ==
PROVIDERS: Emergency Provider Registered Nurse Emergency; PCP Nurse Practitioner Family
DX: R10.31 Right lower quadrant pain (principal); R11.2 Nausea with vomiting, unspecified; R19.7 Diarrhea, unspecified; E83.42 Hypomagnesemia; Z3A.08 8 weeks gestation of pregnancy; O99.331 Smoking (tobacco) complicating pregnancy, first trimester; F17.210 Nicotine dependence, cigarettes, uncomplicated
CPT/HCPCS: 36415; 80053; 96361; 96374; 99284; 76801; 81003; 81015; 83735; 84702; 85025; J2405

== ENCOUNTER 2019-04-17 14:58 | Outpatient (REF) | payer MEDICAID, SELFPAY ==
[2019-04-17 17:40] LABS: *AMPHETAMINES SCREEN URINE Negative (Negative); *BARBITURATES SCREEN URINE Negative (Negative); *BENZODIAZEPINES SCREEN URINE Negative (Negative); Cannabinoids THC POSITIVE (Negative); Cocaine Screen,Urine Negative (Negative); METHADONE URINE SCREEN Negative (Negative); OPIATES URINE SCREEN Negative (Negative); Tricyclic Antidepressants Negative (Negative)
[2019-04-20 13:32] LABS: Chlamydia Result Negative (Negative); GC Result Negative (Negative)
[2019-04-21 08:55] LABS: Norbuprenorphine 474.6 ng/mL
== END 2019-04-17 15:18 ==
LOC: LBO 14:58
PROVIDERS: PCP Nurse Practitioner Family; Visit Provider Advanced Practice Midwife
DX: Z34.91 Encounter for supervision of normal pregnancy, unspecified, first trimester (principal); Z11.3 Encounter for screening for infections with a predominantly sexual mode of transmission
CPT/HCPCS: 80307; 87491; 87591; 87086

== ENCOUNTER 2019-04-20 09:56 | Outpatient (CLI) | payer MEDICAID, SELFPAY ==
[2019-04-20 10:49] LABS: Glucose,1 Hr (Glucola) 123 mg/dL (80-140)
[2019-04-20 11:07] LABS: Abs Immature Grans 0.03 k/cumm (0.0-0.09); Absolute Eosinophil Count 0.13 k/cumm (0.0-0.7); Basophils % 0.2; HCT 35.7 % (36.0-46.0); HGB 12.5 g/dL (12.0-15.5); Immature Grans % 0.2 %; Lymphocytes % 17.4; Mean Corpuscular Hemoglobin 31.3 pg (27.0-33.0); Mean Corpuscular Volume 89.5 fL (80-95); Mean Platelet Volume 10.3 fL (8.0-11.0); Monocytes % 4.2; Platelet Count 297 x1000/uL (130-400); RBC 3.99 m/cumm (4.00-5.20); RBC Distribution Width 11.3 % (11.7-14.6); White Blood Cell Count 12.73 k/cumm (4.4-10.8)
[2019-04-20 11:14] LABS: Absolute Basophil Count 0.03 k/cumm (0.0-0.2); Absolute Lymphocyte Count 2.22 k/cumm (1.2-3.4); Absolute Monocyte Count 0.53 k/cumm (0.11-0.7)
[2019-04-20 11:46] LABS: ALT 13 U/L (14-59); AST 11 U/L (15-37); Albumin 3.8 g/dL (3.4-5.0); Alkaline Phosphatase 52 U/L (46-116); Bilirubin, Direct 0.09 mg/dL (0.00-0.20); Bilirubin, Total 0.4 mg/dL (0.2-1.0); Total Protein 6.5 g/dL (6.4-8.2)
[2019-04-21 10:06] LABS: Hepatitis B Surface Ag Negative (Negative)
[2019-04-21 10:41] LABS: HIV-1/2 Ag & Ab Screen Negative (Negative)
[2019-04-21 11:03] LABS: Hepatitis C Ab w Rflx HCV PCR Negative (Negative)
[2019-04-21 11:50] LABS: Rubella IgG Ab (UVM) Positive (See Note); Varicella IgG Antibody Positive (See Note)
[2019-04-22 08:09] LABS: Syphilis Total Ab w/Reflex Nonreactive (Nonreactive)
== END 2019-04-20 10:16 ==
PROVIDERS: PCP Nurse Practitioner Family; Visit Provider Advanced Practice Midwife
DX: Z34.91 Encounter for supervision of normal pregnancy, unspecified, first trimester (principal); Z11.4 Encounter for screening for human immunodeficiency virus [HIV]; Z11.59 Encounter for screening for other viral diseases; Z01.84 Encounter for antibody response examination
CPT/HCPCS: 36415; 80076; 82950; 86787; 86803; 86850; 86900; 86901; 87340; 87389; 84443; 85025; 86762; 86780

== ENCOUNTER 2019-05-05 13:26 | Outpatient (REF) | payer MEDICAID, SELFPAY ==
[2019-05-05 19:12] LABS: HCT 37.1 % (36.0-46.0); HGB 12.7 g/dL (12.0-15.5); Mean Corp. HGB Concentration 34.2 g/dL (32.0-36.0); Mean Corpuscular Hemoglobin 30.7 pg (27.0-33.0); Mean Corpuscular Volume 89.6 fL (80-95); Mean Platelet Volume 11.3 fL (8.0-11.0); Platelet Count 284 x1000/uL (130-400); RBC 4.14 m/cumm (4.00-5.20); RBC Distribution Width 11.6 % (11.7-14.6); White Blood Cell Count 12.44 k/cumm (4.4-10.8)
== END 2019-05-05 13:46 ==
LOC: NCHCN 13:26
PROVIDERS: PCP Nurse Practitioner Family; Visit Provider Nurse Practitioner Family
DX: R04.0 Epistaxis (principal)
CPT/HCPCS: 85027

== ENCOUNTER 2019-07-08 11:05 | Outpatient (REF) | payer MEDICAID, SELFPAY ==
[2019-07-08 11:56] LABS: *AMPHETAMINES SCREEN URINE Negative (Negative); *BARBITURATES SCREEN URINE Negative (Negative); *BENZODIAZEPINES SCREEN URINE Negative (Negative); Cannabinoids THC Negative (Negative); Cocaine Screen,Urine Negative (Negative); METHADONE URINE SCREEN Negative (Negative); OPIATES URINE SCREEN Negative (Negative)
[2019-07-08 11:57] LABS: Tricyclic Antidepressants Negative (Negative)
[2019-07-15 11:27] LABS: Norbuprenorphine 1399.7 ng/mL
== END 2019-07-08 11:25 ==
LOC: LBN 11:05
PROVIDERS: PCP Nurse Practitioner Family; Visit Provider Advanced Practice Midwife
DX: O99.322 Drug use complicating pregnancy, second trimester (principal); F11.20 Opioid dependence, uncomplicated; Z3A.22 22 weeks gestation of pregnancy
CPT/HCPCS: 80307

== ENCOUNTER 2019-07-22 13:12 | Outpatient (REF) | payer MEDICAID, SELFPAY ==
[2019-07-22 12:43] LABS: *AMPHETAMINES SCREEN URINE Negative (Negative); *BARBITURATES SCREEN URINE Negative (Negative); *BENZODIAZEPINES SCREEN URINE Negative (Negative); Cannabinoids THC POSITIVE (Negative); Cocaine Screen,Urine Negative (Negative); METHADONE URINE SCREEN Negative (Negative); OPIATES URINE SCREEN Negative (Negative)
[2019-07-22 12:46] LABS: Tricyclic Antidepressants Negative (Negative)
[2019-07-28 13:11] LABS: Norbuprenorphine 1392.4 ng/mL
== END 2019-07-22 13:32 ==
LOC: LBN 13:12
PROVIDERS: PCP Nurse Practitioner Family; Visit Provider Advanced Practice Midwife
DX: Z34.92 Encounter for supervision of normal pregnancy, unspecified, second trimester (principal); F11.11 Opioid abuse, in remission
CPT/HCPCS: 80307

== ENCOUNTER 2019-08-05 14:26 | Outpatient (REF) | payer MEDICAID, SELFPAY ==
[2019-08-05 15:59] LABS: *AMPHETAMINES SCREEN URINE Negative (Negative); *BARBITURATES SCREEN URINE Negative (Negative); *BENZODIAZEPINES SCREEN URINE Negative (Negative); Cannabinoids THC POSITIVE (Negative); Cocaine Screen,Urine Negative (Negative); METHADONE URINE SCREEN Negative (Negative); OPIATES URINE SCREEN Negative (Negative)
[2019-08-05 16:04] LABS: Tricyclic Antidepressants Negative (Negative)
[2019-08-09 03:28] LABS: Buprenorphine 257.3 ng/mL; Norbuprenorphine 809.6 ng/mL
== END 2019-08-05 14:46 ==
LOC: LBN 14:26
PROVIDERS: PCP Nurse Practitioner Family; Visit Provider Advanced Practice Midwife
DX: F11.11 Opioid abuse, in remission (principal); Z34.92 Encounter for supervision of normal pregnancy, unspecified, second trimester
CPT/HCPCS: 80307

== ENCOUNTER 2019-08-19 04:17 | Outpatient (CLI) | payer MEDICAID, SELFPAY ==
[2019-08-19 11:45] LABS: HCT 31.4 % (36.0-46.0); HGB 10.6 g/dL (12.0-15.5); Mean Corp. HGB Concentration 33.8 g/dL (32.0-36.0); Mean Corpuscular Hemoglobin 30.7 pg (27.0-33.0); Platelet Count 391 x1000/uL (130-400); RBC 3.45 m/cumm (4.00-5.20); RBC Distribution Width 12.9 % (11.7-14.6); White Blood Cell Count 16.66 k/cumm (4.4-10.8)
[2019-08-19 12:09] LABS: Glucose,1 Hr (Glucola) 112 mg/dL (80-140)
[2019-08-19 13:07] LABS: *AMPHETAMINES SCREEN URINE Negative (Negative); *BARBITURATES SCREEN URINE Negative (Negative); *BENZODIAZEPINES SCREEN URINE Negative (Negative); Cannabinoids THC POSITIVE (Negative); Cocaine Screen,Urine Negative (Negative); METHADONE URINE SCREEN Negative (Negative); OPIATES URINE SCREEN Negative (Negative)
[2019-08-19 13:12] LABS: Tricyclic Antidepressants Negative (Negative)
== END 2019-08-19 04:37 ==
PROVIDERS: Advanced Practice Midwife; PCP Nurse Practitioner Family; Visit Provider Advanced Practice Midwife
DX: O99.323 Drug use complicating pregnancy, third trimester (principal); F11.20 Opioid dependence, uncomplicated
CPT/HCPCS: 36415; 80307; 82950; 85027

== ENCOUNTER 2019-09-03 15:34 | Outpatient (REF) | payer MEDICAID, SELFPAY ==
[2019-09-03 17:38] LABS: *AMPHETAMINES SCREEN URINE Negative (Negative); *BARBITURATES SCREEN URINE Negative (Negative); *BENZODIAZEPINES SCREEN URINE Negative (Negative); Cannabinoids THC POSITIVE (Negative); Cocaine Screen,Urine Negative (Negative); METHADONE URINE SCREEN Negative (Negative); OPIATES URINE SCREEN Negative (Negative)
[2019-09-03 17:40] LABS: Tricyclic Antidepressants Negative (Negative)
[2019-09-08 10:19] LABS: Buprenorphine 159.1 ng/mL; Norbuprenorphine 602.3 ng/mL
== END 2019-09-03 15:54 ==
LOC: LBN 15:34
PROVIDERS: PCP Nurse Practitioner Family; Visit Provider Advanced Practice Midwife
DX: O99.323 Drug use complicating pregnancy, third trimester (principal); Z3A.30 30 weeks gestation of pregnancy
CPT/HCPCS: 80307

== ENCOUNTER 2019-09-17 17:18 | Outpatient (REF) | payer MEDICAID, SELFPAY ==
[2019-09-17 18:19] LABS: *AMPHETAMINES SCREEN URINE Negative (Negative); *BARBITURATES SCREEN URINE Negative (Negative); *BENZODIAZEPINES SCREEN URINE Negative (Negative); Cannabinoids THC POSITIVE (Negative); Cocaine Screen,Urine Negative (Negative); METHADONE URINE SCREEN Negative (Negative); OPIATES URINE SCREEN Negative (Negative)
[2019-09-17 18:23] LABS: Tricyclic Antidepressants Negative (Negative)
[2019-09-22 14:49] LABS: Buprenorphine 183.9 ng/mL; Norbuprenorphine 643.3 ng/mL
== END 2019-09-17 17:38 ==
LOC: LBN 17:18
PROVIDERS: PCP Nurse Practitioner Family; Visit Provider Advanced Practice Midwife
DX: F11.20 Opioid dependence, uncomplicated (principal); Z34.90 Encounter for supervision of normal pregnancy, unspecified, unspecified trimester
CPT/HCPCS: 80307

== ENCOUNTER 2019-10-14 06:05 | Outpatient (CLI) | payer MEDICAID, SELFPAY | END 2019-10-14 06:25 | PROVIDERS: PCP Nurse Practitioner Family; Visit Provider Advanced Practice Midwife | DX: Z36.83 Encounter for fetal screening for congenital cardiac abnormalities (principal); Z3A.36 36 weeks gestation of pregnancy | CPT/HCPCS: 59025 ==

== ENCOUNTER 2019-10-14 15:46 | Outpatient (REF) | payer MEDICAID, SELFPAY ==
[2019-10-14 16:52] LABS: *AMPHETAMINES SCREEN URINE Negative (Negative); *BARBITURATES SCREEN URINE Negative (Negative); *BENZODIAZEPINES SCREEN URINE Negative (Negative); Cannabinoids THC POSITIVE (Negative); Cocaine Screen,Urine Negative (Negative); METHADONE URINE SCREEN Negative (Negative); OPIATES URINE SCREEN Negative (Negative)
[2019-10-14 17:04] LABS: Tricyclic Antidepressants Negative (Negative)
[2019-10-20 08:43] LABS: Norbuprenorphine 1339.4 ng/mL
== END 2019-10-14 16:06 ==
LOC: LBN 15:46
PROVIDERS: PCP Nurse Practitioner Family; Visit Provider Advanced Practice Midwife
DX: Z34.90 Encounter for supervision of normal pregnancy, unspecified, unspecified trimester (principal)
CPT/HCPCS: 80307; 87081

== ENCOUNTER 2019-10-19 07:21 | Outpatient (CLI) | payer MEDICAID, SELFPAY | END 2019-10-19 07:41 | PROVIDERS: PCP Nurse Practitioner Family; Visit Provider Advanced Practice Midwife | DX: Z36.83 Encounter for fetal screening for congenital cardiac abnormalities (principal); Z3A.37 37 weeks gestation of pregnancy | CPT/HCPCS: 59025 ==

== ENCOUNTER 2019-10-22 07:32 | Outpatient (CLI) | payer MEDICAID, SELFPAY | END 2019-10-22 07:52 | PROVIDERS: PCP Nurse Practitioner Family; Visit Provider Advanced Practice Midwife | DX: Z36.89 Encounter for other specified antenatal screening (principal); Z3A.37 37 weeks gestation of pregnancy | CPT/HCPCS: 59025 ==

== ENCOUNTER 2019-10-23 15:36 | Outpatient (REF) | payer MEDICAID, SELFPAY ==
[2019-10-23 15:41] LABS: Bilirubin Negative (Negative); Blood Negative (Negative); Clarity Cloudy (Clear); Glucose Negative (Negative); Ketones Trace mg/dL (Negative); Leukocyte Esterase Moderate (Negative); Nitrite Negative (Negative); Urobilinogen 0.2 EU/dL (Up TO 0.2); pH 6.5 (5-8)
[2019-10-23 15:59] LABS: Bacteria Many HPF (Negative); Other Cells Few Yeast (Negative); WBC >50 HPF (0-5)
[2019-10-23 16:00] LABS: Epithelial Cells Many HPF (Negative)
[2019-10-23 16:01] LABS: C & S Indicated? No/Sq. Contamination
== END 2019-10-23 15:56 ==
LOC: NCHCN 15:36
PROVIDERS: PCP Nurse Practitioner Family; Visit Provider Nurse Practitioner Family
DX: R82.998 Other abnormal findings in urine (principal)
CPT/HCPCS: 81003; 81015

== ENCOUNTER 2019-10-27 07:16 | Outpatient (CLI) | payer MEDICAID, SELFPAY | END 2019-10-27 07:36 | PROVIDERS: PCP Nurse Practitioner Family; Visit Provider Advanced Practice Midwife | DX: O43.113 Circumvallate placenta, third trimester (principal); Z3A.38 38 weeks gestation of pregnancy | CPT/HCPCS: 59025 ==

== ENCOUNTER 2019-10-29 10:04 | Observation (INO) | payer MEDICAID, SELFPAY ==
[2019-10-29 10:43] LABS: ROM Plus Negative
[2019-10-29 10:47] LABS: *AMPHETAMINES SCREEN URINE Negative (Negative); *BARBITURATES SCREEN URINE Negative (Negative); *BENZODIAZEPINES SCREEN URINE Negative (Negative); Cannabinoids THC POSITIVE (Negative); Cocaine Screen,Urine Negative (Negative); METHADONE URINE SCREEN Negative (Negative); OPIATES URINE SCREEN Negative (Negative)
[2019-10-29 10:51] LABS: Tricyclic Antidepressants Negative (Negative)
== END 2019-10-29 11:25 | disposition home or self-care (01) ==
PROVIDERS: Admitting Provider Advanced Practice Midwife; PCP Nurse Practitioner Family; Visit Provider Advanced Practice Midwife
DX: O47.1 False labor at or after 37 completed weeks of gestation (principal); Z03.71 Encounter for suspected problem with amniotic cavity and membrane ruled out; Z3A.38 38 weeks gestation of pregnancy
CPT/HCPCS: 80307; 84112

== ENCOUNTER 2019-10-30 12:44 | Outpatient (REF) | payer MEDICAID, SELFPAY ==
[2019-10-30 14:03] LABS: Tricyclic Antidepressants Negative (Negative)
[2019-10-30 14:07] LABS: *AMPHETAMINES SCREEN URINE Negative (Negative); *BARBITURATES SCREEN URINE Negative (Negative); *BENZODIAZEPINES SCREEN URINE Negative (Negative); Cannabinoids THC POSITIVE (Negative); Cocaine Screen,Urine Negative (Negative); METHADONE URINE SCREEN Negative (Negative); OPIATES URINE SCREEN Negative (Negative)
[2019-11-03 13:21] LABS: Norbuprenorphine 1396.5 ng/mL
== END 2019-10-30 13:04 ==
LOC: LBN 12:44
PROVIDERS: PCP Nurse Practitioner Family; Visit Provider Advanced Practice Midwife
DX: F11.20 Opioid dependence, uncomplicated (principal); Z34.90 Encounter for supervision of normal pregnancy, unspecified, unspecified trimester
CPT/HCPCS: 80307

== ENCOUNTER 2019-11-02 10:14 | Outpatient (CLI) | payer MEDICAID, SELFPAY ==
[2019-11-02 10:36] VITALS: BP 95/69; PULSE 97
--- NOTE | 2019-11-02 11:12 | W.OBNST ---
Date of service: 11/02/19 Time of Service: 11:12 NST Evaluation Reason for NST Reasons for Nonstress Test: SUBSTANCE ABUSE IN MAT Gestational Age Gestational Age in Weeks and Days: 39 Weeks and 0Days Test and Monitor Explained Test/Monitor Explained: Test Explained, Monitor Explained and Patient Verbalized Understanding Urine Results Urine Protein: Positive Urine Ketones: Negative Urine Glucose: Negative Urine Blood: Negative NST Information Date on Monitor: 11/02/19 Time on Monitor: 10:11 Date off Monitor: 11/02/19 NST Interventions: PO Hydration NST Evaluation Patient States Movement: Present Variability: Moderate 6-25 bpm Accelerations: 15x15 Decelerations: None NST Results: Reactive Note NST Note Note: Denia was leaking fluid after coughing and getting up to the bathroom. It was nitrazine neg. and a ROM plus was taken. Awaiting results. Denia is complaining of back pain. Cervix 1.5/50% /-1 Signs of labor reviewed NST Reviewed and Verified by: Bren Murrieta
[2019-11-02 11:48] LABS: ROM Plus Negative
== END 2019-11-02 11:00 ==
LOC: BCD 10:16 → OBS 10:23
PROVIDERS: PCP Nurse Practitioner Family; Visit Provider Advanced Practice Midwife
DX: O99.323 Drug use complicating pregnancy, third trimester (principal); Z3A.39 39 weeks gestation of pregnancy; Z03.71 Encounter for suspected problem with amniotic cavity and membrane ruled out; M54.9 Dorsalgia, unspecified
CPT/HCPCS: 59025; 84112

== ENCOUNTER 2019-11-03 17:37 | Inpatient (IN) | payer MEDICAID, SELFPAY ==
[2019-11-03 18:30] VITALS: BP 131/69; PULSE 104; RESP 20; TEMP 36.5
[2019-11-03 18:45] VITALS: TEMP 36.5
[2019-11-03 19:28] LABS: HCT 36.5 % (36.0-46.0); HGB 12.6 g/dL (11.2-15.7); MCH 30.2 pg (27.0-33.0); MCHC 34.5 % (32.0-36.0); MCV 87.5 fL (80-95); Platelet Count 390 10^3/uL (130-400); RBC 4.17 10^6/uL (3.93-5.22); RDW 11.9 % (11.7-14.6); RDW-SD 38.3 fL; WBC 22.88 10^3/uL (4.4-10.8)
[2019-11-03] MEDS: Lactated Ringers 1,000 ML 125 ML IV (19:30)
[2019-11-03] MEDS: Penicillin G POT. 5,000,000 UNITS in Normal Saline 100 ML 200 UNITS IVPB (19:31)
[2019-11-03 20:34] VITALS: BP 101/51; PULSE 79
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
[2019-11-03] MEDS: Penicillin G POT. 3,000,000 UNITS in Normal Saline 50 ML 100 UNITS IVPB (23:03)
--- NOTE | 2019-11-03 23:33 | W.PM.OBNL1 ---
Date of service: 11/03/19 Time of Service: 23:38 Pelvic Exam Kim Score: Cervical Points Exam 0 1 2 3 Dilation Closed 1-2cm 3-4 cm 5-6cm Effacement 0-30% 40-50% 60-70% 80% Consistency Firm Medium Soft Station -3 -2 -1,0 +1,+2 Position Posterior Mid Anterior Assessment and Plan Assessment and plan (1) Active labor at term: Start date: 11/03/19 Start time: 23:35 Status: Acute Assessment and plan: Coping well with contractions. SVE performed and cervix 80/-1/post. using nitrous oxide. She is unable to wake her partner for support. She denies that he took any medications which dont allow him to wake up. Category 1 tracing. Comfort measures provided. Anticipate Objective Abnormal lab results 11/03/19 Range/Units 18:57 WBC 22.88 H (4.4-10.8) 10^3/uL Temp Pulse Resp BP 97.7 F 79 20 101/51 L 11/03/19 18:45 11/03/19 20:34 11/03/19 18:30 11/03/19 20:34 Laboratory Results WBC 22.88 10^3/uL (4.4-10.8) H 11/03/19 18:57 RBC 4.17 10^6/uL (3.93-5.22) 11/03/19 18:57 Hgb 12.6 g/dL (11.2-15.7) 11/03/19 18:57 Hct 36.5 % (36.0-46.0) 11/03/19 18:57 MCV 87.5 fL (80-95) 11/03/19 18:57 MCH 30.2 pg (27.0-33.0) 11/03/19 18:57 MCHC 34.5 % (32.0-36.0) 11/03/19 18:57 RDW 11.9 % (11.7-14.6) 11/03/19 18:57 Plt Count 390 10^3/uL (130-400) 11/03/19 18:57 MPV 10.0 fL (8.0-11.0) 11/03/19 18:57 Patient ABO/Rh AB Positive 11/03/19 18:57 Antibody Screen Negative 11/03/19 18:57 Results Hemoglobin/Hematocrit: Hgb 12.6 g/dL (11.2-15.7) 11/03/19 18:57 Hct 36.5 % (36.0-46.0) 11/03/19 18:57 Abnormal Lab Findings: Abnormal Labs 11/03/19 18:57 WBC 22.88 H
[2019-11-04] VITALS (26 sets, daily range): BP systolic 86–126; BP diastolic 43–80; PULSE 56–77; RESP 18; TEMP 36.3–36.8; O2SAT 96–98
[2019-11-04] MEDS: FentaNYL/ROPIvacaine 2 mcg/ml and 0.1% 200 ML CADD Cassette EP (01:21)
[2019-11-04] MEDS: Bupivacaine 0.25% Pres-Free 10 ML VIAL EP (01:41)
[2019-11-04] MEDS: fentaNYL 100 MCG/2 ML VIAL EP (01:43)
[2019-11-04] MEDS: Lactated Ringers 1,000 ML 125 ML IV (03:30)
[2019-11-04] MEDS: Oxytocin/Normal Saline 30 UNIT/500 ML BAG 95 UNITS IV (04:00)
--- NOTE | 2019-11-04 04:19 | OBVDS_ITS ---
Date of service: 11/04/19 Time of Service: 04:19 OB Labor/ Delivery Information Labor/Delivery Information Group Beta Strep: Positive Rubella Status: Immune Blood Type: AB+ Stages of Labor ROM Baby A: 11/03/19 ROM Baby A: 16:40 Baby A Delivery Delivery Method: Spontaneaous Presentation: Cephalic Cephalic Position: Vertex Vertex Position: Left Occipital Anterior Breech Position: N/A Cord Description-Baby A: 3 Vessels Membrane Rupture: Spontaneous Amniotic Fluid: Meconium Amniotic Fluid Amount: Moderate Amniotic Fluid Odor: None Estimated Blood Loss: 250 Delivery Outcome: Liveborn Complications: none Note: Progressed to 5 cms after epidural was provided by Socorro from SERVICE LEARNING COORDIN[employer]. FHTs 130s during first stage of labor. 130s in second stage with occasional variable decellerations. Exam by RN and she was found to be fully and she began pushing. After the first push, vertex was on the perineum. Spontaneous delivery of male infant delivered in SUAD position. Baby was placed on mother's abdomen and dried and stimulated. Spontaneous cry. Cord was clamped and cut by the father of the baby . The placenta delivered spontaneously and appears to be intact with a three vessel cord. Pitocin 30 units IV was administered after delivery of the placenta. The perineum was inspected and found to be intact. After delivery, Mother and baby and father of the baby were stable and bonding well in the delivery room. The baby did attempt to breastfeed. The weight is pending at this time. Interventions Pain Management Interventions: Epidural Start Date: 11/04/19 , Epidural Start Time: 01:30 , .
[2019-11-04] MEDS: valACYclovir 1,000 MG TAB 1000 MG PO (08:30)
[2019-11-04] MEDS: Dexlansoprazole 30 MG CAP PO (08:30)
[2019-11-04] MEDS: Buprenorphine/Naloxone 8 mg/2 mg FILM 1 EACH SL (08:30)
[2019-11-04] MEDS: Ibuprofen 600 MG TAB PO ×2 (08:30→17:25)
--- NOTE | 2019-11-04 10:13 | PGE_ITS ---
Date of Service Date of service: 11/04/19 Time of Service: 10:13 Assessment and Plan Assessment and plan (1) Homelessness: Status: Acute (2) Cognitive developmental delay: Status: Acute (3) Marijuana smoker: Status: Acute (4) Drug dependence during : Status: Acute Assessment and plan: [facility] central intake line notified of the baby's Subjective Subjective Interval history since last seen: at 0419 this morning. Mother and baby are stable. [facility] requested notification of patient's delivery due to open case. Denia is living at the home of her boyfriend and FOB's sister and sleeping on her couch. Placement for housing at [facility] is not an option as they are not accepting residents yet. Bonding behaviors have been appropriate for Denia and the baby's father Rishi and Denia is her baby. Objective Last Vital Signs Temp 98.2 F 11/04/19 08:38 Pulse 74 11/04/19 08:38 Resp 18 11/04/19 08:38 BP 126/74 11/04/19 08:38 Pulse Ox 97 11/04/19 08:38 Laboratory Results - last 24 hr 11/03/19 11/03/19 18:57 18:57 WBC 22.88 H RBC 4.17 Hgb 12.6 Hct 36.5 MCV 87.5 MCH 30.2 MCHC 34.5 RDW 11.9 Plt Count 390 MPV 10.0 Patient ABO/Rh AB Positive Antibody Screen Negative
--- NOTE | 2019-11-04 13:50 | W.OBDELIVERY ---
Date of service: 11/04/19 Time of Service: 04:19 OB Labor/ Delivery Information Providers Nurse Director Of Content And Programming: Bren Murrieta Nurse: Helen Niño Nurse: Deepti Haley Labor/Delivery Information Number of Babies in Womb: 1 Steroids Given: None Reason Steroids Not Administered: N/A Group Beta Strep: Positive Antibiotics Administered: Yes Number of Doses of Antibiotics: 2 Rubella Status: Immune Blood Type: AB+ Varicella Immunity: Immune Maternal Complications: None Shoulder Dystocia: Yes Stages of Labor Onset of Labor Date: 11/03/19 Onset of Labor Time: 16:40 Complete Dilatation Date: 11/04/19 Complete Dilatation Time: 03:30 ROM Baby A: 11/03/19 ROM Baby A: 16:40 ROM Total Time- Baby A: [id number] Infant Delivery Date-Baby A: 11/04/19 Delivery Time-Baby A: 03:45 Placenta Delivery Date-Baby A: 11/04/19 Placenta Delivery Time-Baby A: 04:00 Total Length of Labor-Baby A: 11 hours and 20 minutes Placenta Cultured: No Placenta Status: Delivered Baby A Gender: Male Gestational Status: Term Gestational Age in Weeks/Days: 39 Weeks and 2 Days weight: 6 lb 5.236 oz Length-Baby A: 18.5 in Head Circumference-Baby A: 12.4 in Score-1 Minute Interval(Baby A) Heart Rate-1 minute: 100 BPM or Greater Respiratory Effort- 1 minute: Spontaneous/Strong Cry Muscle Tone-1 minute: Active Movement Reflex Response-1 minute: Prompt Response Color-1 minute: Bluish Hands or Feet Total Score-1 minute: 9 Score-5 Minute Interval(Baby A) Heart Rate- 5 minute: 100 BPM or Greater Respiratory Effort-5 minute: Spontaneous/Strong Cry Muscle Tone-5 minute: Active Movement Reflex Response-5 minute: Prompt Response Color-5 minute: Bluish Hands or Feet Total Score- 5 minute: 9 Baby A Delivery Delivery Method: Spontaneaous Presentation: Cephalic Cephalic Position: Vertex Vertex Position: Left Occipital Anterior Breech Position: N/A Cord Description-Baby A: 3 Vessels Membrane Rupture: Spontaneous Amniotic Fluid: Meconium Amniotic Fluid Amount: Moderate Amniotic Fluid Odor: None Estimated Blood Loss: 250 cc Delivery Outcome: Liveborn Infant Complications: none Disposition: Remains with Mother Note: Progressed to 5 cms after epidural was provided by Socorro from [employer]. FHTs 130s during first stage of labor. 130s in second stage with occasional variable decellerations. Exam by RN and she was found to be fully and she began pushing. After the first push, vertex was on the perineum. Spontaneous delivery of male delivered in SUAD position. Baby was placed on mother's abdomen and dried and stimulated. Spontaneous cry. Cord was clamped and cut by the father of the baby . The placenta delivered spontaneously and appears to be intact with a three vessel cord. Pitocin 30 units IV was administered after delivery of the placenta. The perineum was inspected and found to be intact. After delivery, Mother and baby and father of the baby were stable and bonding well in the delivery room. The baby did attempt to breastfeed. The weight is pending at this time. Interventions Pain Management Interventions: Epidural . Shoulder Dystocia Delivery Times Delivery Date-Baby A: 11/04/19 Delivery Time-Baby A: 03:45
[2019-11-04] MEDS: Acetaminophen 325 MG TAB 650 MG PO (17:24)
[2019-11-04] MEDS: Mometasone 220 MCG 14 DOSE INHALER 1 PUFF IH (17:25)
--- NOTE | 2019-11-04 18:18 | NUR.NOTE ---
DCF in to speak with patient regarding infant custody. 2 State [employer] in attendance as well as [facility] Lidding Machine Operator. Plan of care to inform patient she may stay in hospital during infant admission, but once is discharged he will be in the state's custody. DCF worker (Yumi Heard) also informed nursing that any medical procedures must be approved by the state and will forward a Statement of Custody/court order to nursing staff this evening that includes the intake number for patient. A copy will also be provided for the industrial hire sales assistant in house. Nursing Note:
[2019-11-04 21:18] LABS: COVID-19 RT-PCR UVMMC Result Negative (Negative)
[2019-11-04] MEDS: Mirtazapine 15 MG TAB PO (21:48)
[2019-11-05 00:58] VITALS: BP 119/80; PULSE 72; RESP 18; TEMP 36.6; O2SAT 98
[2019-11-05 06:50] LABS: HCT 37.3 % (36.0-46.0); HGB 12.6 g/dL (11.2-15.7); MCH 30.4 pg (27.0-33.0); MCHC 33.8 % (32.0-36.0); MCV 89.9 fL (80-95); MPV 9.6 fL (8.0-11.0); Platelet Count 378 10^3/uL (130-400); RBC 4.15 10^6/uL (3.93-5.22); RDW 11.9 % (11.7-14.6); RDW-SD 38.5 fL; WBC 20.29 10^3/uL (4.4-10.8)
[2019-11-05 08:05] VITALS: BP 113/81; PULSE 90; RESP 16; TEMP 36.3; O2SAT 97
[2019-11-05] MEDS: Acetaminophen 325 MG TAB 650 MG PO (08:20)
[2019-11-05] MEDS: valACYclovir 1,000 MG TAB 1000 MG PO (08:21)
[2019-11-05] MEDS: Mometasone 220 MCG 14 DOSE INHALER 1 PUFF IH (08:21)
[2019-11-05] MEDS: Buprenorphine/Naloxone 8 mg/2 mg FILM 1 EACH SL (08:21)
[2019-11-05] MEDS: Ibuprofen 600 MG TAB PO (08:21)
[2019-11-05] MEDS: Dexlansoprazole 30 MG CAP PO (08:21)
--- NOTE | 2019-11-05 09:42 | W.PM.OBPNV1 ---
Date of service: 11/05/19 Time of Service: 09:43 Assessment and Plan Assessment and plan (1) Encounter for routine follow-up: Status: Acute Assessment and plan: Nml PP recovery at 24 hrs Complex psych and social situation with DCF involvement, Pt states she has just moved into a hotel room with FOB Will discharge to boarder status at pt request today F/up at 2 & 6 wks; maintain communications with social support services Considering Depo or OC's for BCM but undecided at this time Written instructions given to pt Subjective Subjective Interval history: at 0419 this morning. Mother and baby are stable. DCF requested notification of patient's delivery due to open case. Denia is living at the home of her boyfriend and FOValeri's sister and sleeping on her couch. Placement for housing at [facility] is not an option as they are not accepting residents yet. Bonding behaviors have been appropriate for Denia and the baby's father Rishi and Denia is her baby. Patient comments: No complaints and Flatus present baby status: Nursing well, Rooming in and Strong Bonding Observed feeding status: Exclusively breast feeding Narrative: PPD#1: DCF has taken custody of the infant, pt upset and going to court this afternoon. Has been , pumping milk and cup feeding it to the baby. 5 day ESC in progress. Pt desires discharge to boarder status today. Exam Physical Exam Vital signs: Temp Pulse Resp BP Pulse Ox 97.3 F L 90 16 113/81 97 11/05/19 08:05 11/05/19 08:05 11/05/19 08:05 11/05/19 08:05 11/05/19 08:05 Respiratory Exam Respiratory Exam: Normal Cardiovascular Exam Cardiovascular Exam: Normal Abdominal Exam Comments: nml Fundal Exam Fundus: Below Umbilicus and Firm Exam Patient deferred: external exam Perineum: Intact and Normal Extremities Exam Extremity Exam: Normal Back/Spine/Pelvis Exam Back Exam: Normal Skin Exam Skin Exam: Normal Neurological Exam Neurological Exam: Normal Psychiatric Exam Psychiatric Exam: Normal (Appropriately sad about custody issues) Results Hemoglobin/Hematocrit: Hgb 12.6 g/dL (11.2-15.7) 11/05/19 06:37 Hct 37.3 % (36.0-46.0) 11/05/19 06:37 Abnormal Lab Findings: Abnormal Labs 11/03/19 11/05/19 18:57 06:37 WBC 22.88 H 20.29 H
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
== END 2019-11-05 10:55 | disposition home or self-care (01) | DRG 806 ==
PROVIDERS: Admitting Provider Advanced Practice Midwife; PCP Nurse Practitioner Family; Visit Provider Advanced Practice Midwife
DX: O77.0 Labor and delivery complicated by meconium in amniotic fluid (principal); O99.324 Drug use complicating childbirth; Z37.0 Single live birth; F11.20 Opioid dependence, uncomplicated; O98.52 Other viral diseases complicating childbirth; O99.354 Diseases of the nervous system complicating childbirth; O76 Abnormality in fetal heart rate and rhythm complicating labor and delivery; O99.824 Streptococcus B carrier state complicating childbirth; O99.344 Other mental disorders complicating childbirth; O99.62 Diseases of the digestive system complicating childbirth; O99.334 Smoking (tobacco) complicating childbirth; Z3A.39 39 weeks gestation of pregnancy; Z59.0 Homelessness; B00.9 Herpesviral infection, unspecified; F90.9 Attention-deficit hyperactivity disorder, unspecified type; F12.10 Cannabis abuse, uncomplicated; F17.210 Nicotine dependence, cigarettes, uncomplicated; K21.9 Gastro-esophageal reflux disease without esophagitis; Z67.30 Type AB blood, Rh positive; Z63.5 Disruption of family by separation and divorce; F81.9 Developmental disorder of scholastic skills, unspecified; Z75.2 Other waiting period for investigation and treatment; G40.909 Epilepsy, unspecified, not intractable, without status epilepticus
CPT/HCPCS: 36415; 85027; 86850; 86900; 86901; 99232; U0003; 59025; J2540; J3010; J3490

== ENCOUNTER 2020-05-02 11:29 | Outpatient (CLI) | payer MEDICAID, SELFPAY ==
[2020-05-02 12:01] LABS: HCT 35.8 % (36.0-46.0); HGB 12.1 g/dL (11.2-15.7); MCH 30.7 pg (27.0-33.0); MCHC 33.8 % (32.0-36.0); MCV 90.9 fL (80-95); MPV 9.5 fL (8.0-11.0); Platelet Count 376 10^3/uL (130-400); RBC 3.94 10^6/uL (3.93-5.22); RDW 11.8 % (11.7-14.6); RDW-SD 39.1 fL; WBC 10.26 10^3/uL (4.4-10.8)
[2020-05-02 12:40] LABS: HCG Quant, Pregnancy 1763 mIU/mL (1-3)
== END 2020-05-02 11:30 | disposition home or self-care (01) ==
PROVIDERS: PCP Nurse Practitioner Family; Visit Provider Advanced Practice Midwife
DX: O03.9 Complete or unspecified spontaneous abortion without complication (principal)
CPT/HCPCS: 36415; 85027; 84702

== ENCOUNTER 2020-05-02 12:18 | Outpatient (CLI) | payer MEDICAID, SELFPAY ==
--- NOTE | 2020-05-02 09:21 | DI.US_ITS ---
EXAM: US OB 1ST TRIMESTER CLINICAL HISTORY: Follow-up on SAB 05/01/2020 O03.9. TECHNIQUE: First trimester obstetrical ultrasound was performed. COMPARISON: US US OB 1ST TRIMESTER from 04/01/2019 FINDINGS: Uterus measures 10.6 centimetres in length by 5.7 centimeter AP x 7 cm wide. There are no obvious ut erine fibroids. There is no evidence of intrauterine gestational sac nor pole. Somewhat thick ened mildly vascular endometrium thickness 2.2 cm noted echogenic material noted in the cervical kavita l. Maternal ovaries: Right ovary measures 3.7 x 2.0 x 1.6 cm appears unremarkable. Left ovary measures 3.5 x 1.4 x 1.4 cm and appears unremarkable. There is a tiny amount of free fluid in the cul-de-sac. No extraovarian adnexal masses evident IMPRESSION:: As above. There is no evidence of intrauterine gestation. Thickened endometrium. Probable clot within the cervix. Findings are probably consistent with spontaneous . Ovaries appear unremarkable. There is a small amount of fluid in the cul-de-sac. DATA REPOSITORY:
== END 2020-05-02 12:38 ==
PROVIDERS: PCP Nurse Practitioner Family; Visit Provider Obstetrics & Gynecology Gynecology
DX: O03.9 Complete or unspecified spontaneous abortion without complication (principal)
CPT/HCPCS: 76801

== ENCOUNTER 2020-06-13 13:24 | Emergency (ER) | payer MEDICAID, SELFPAY ==
[2020-06-13 13:32] VITALS: BP 125/80; PULSE 80; RESP 16; TEMP 36.5; O2SAT 98
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
== END 2020-06-13 14:45 | disposition home or self-care (01) ==
PROVIDERS: Emergency Provider Physician Assistant; PCP Nurse Practitioner Family
DX: K08.89 Other specified disorders of teeth and supporting structures (principal)
CPT/HCPCS: 64400; 81025

== ENCOUNTER 2020-12-06 17:00 | Emergency (ER) | payer MEDICAID, SELFPAY ==
[2020-12-06 17:10] VITALS: BP 136/84; PULSE 101; RESP 18; TEMP 36.5; O2SAT 97
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
[2020-12-06] MEDS: Amox. 875/Clav. 125, 2 TABS/BTL 1 TAB PO (17:38)
== END 2020-12-06 18:21 | disposition home or self-care (01) ==
PROVIDERS: Emergency Provider Emergency Medicine; PCP Family Medicine
DX: L03.114 Cellulitis of left upper limb (principal); W57.XXXA Bitten or stung by nonvenomous insect and other nonvenomous arthropods, initial encounter
CPT/HCPCS: 29125; 99283

== ENCOUNTER 2021-01-03 08:51 | Emergency (ER) | payer MEDICAID, SELFPAY ==
[2021-01-03 08:59] VITALS: PULSE 68; RESP 16; TEMP 37.3; O2SAT 98
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
[2021-01-03] MEDS: Ondansetron 4 MG/2 ML VIAL IVP (09:23)
[2021-01-03] MEDS: Normal Saline 1,000 ML 1000 ML IV (09:23)
[2021-01-03 09:34] LABS: ETHANOL BLOOD 140.6 mg/dL (<10)
[2021-01-03 09:35] LABS: Lipase 104 U/L (73-393)
[2021-01-03 09:39] LABS: ALT 20 U/L (14-59); AST 15 U/L (15-37); Alkaline Phosphatase 75 U/L (46-116); Anion Gap 11.3 mmol/L (3-11); BUN 7 mg/dL (7-18); Bilirubin, Total 0.3 mg/dL (0.2-1.0); CO2 27.7 mmol/L (21.0-32.0); CREATININE 0.5 mg/dL (0.55-1.02); Calcium 8.9 mg/dL (8.5-10.1); Chloride 109 mmol/L (98-107); Glucose 99 mg/dL (74-106); Sodium 148 mmol/L (136-145); Total Protein 7.1 g/dL (6.4-8.2)
[2021-01-03 09:40] LABS: Abs Immature Grans 0.04 10^3/uL (0.0-0.06); Absolute Basophil Count 0.05 10^3/uL (0.0-0.2); Absolute Eosinophil Count 0.09 10^3/uL (0.0-0.7); Absolute Lymphocyte Count 2.19 10^3/uL (1.2-3.4); Absolute Monocyte Count 0.27 10^3/uL (0.1-0.8); Absolute Neutrophil Count 7.15 10^3/uL (1.2-6.7); Basophils % 0.5; Eosinophils % 0.9; HCT 42.1 % (36.0-46.0); HGB 13.8 g/dL (11.2-15.7); Immature Grans % 0.4; Lymphocytes % 22.4; MCH 30.9 pg (27.0-33.0); MCHC 32.8 % (32.0-36.0); MCV 94.4 fL (80-95); Monocytes % 2.8; Nucleated RBC 0 %; RBC 4.46 10^6/uL (3.93-5.22); RDW 12.4 % (11.7-14.6); RDW-SD 43.3 fL; WBC 9.79 10^3/uL (4.4-10.8)
[2021-01-03] MEDS: Buprenorphine/Naloxone 8 mg/2 mg FILM 1 EACH SL (09:54)
[2021-01-03] MEDS: Ketorolac 30 MG/ML VIAL IVP (10:05)
[2021-01-03 10:12] LABS: *AMPHETAMINES SCREEN URINE Negative (Negative); *BARBITURATES SCREEN URINE Negative (Negative); *BENZODIAZEPINES SCREEN URINE Negative (Negative); Cannabinoids THC Positive (Negative); Cocaine Screen,Urine Negative (Negative); METHADONE URINE SCREEN Negative (Negative); OPIATES URINE SCREEN Negative (Negative)
[2021-01-03 10:13] LABS: Tricyclic Antidepressants Negative (Negative)
[2021-01-03 10:17] LABS: Bilirubin Negative (Negative); Blood Negative (Negative); Clarity Clear (Clear); Glucose Negative (Negative); Ketones Negative (Negative); Leukocyte Esterase Negative (Negative); Nitrite Negative (Negative); Urobilinogen 0.2 EU/dL (Up TO 0.2); pH 8.5 (5-8)
[2021-01-03 10:41] VITALS: BP 121/83; PULSE 90; O2SAT 100
== END 2021-01-03 11:04 | disposition home or self-care (01) ==
PROVIDERS: Emergency Provider Physician Assistant; PCP Nurse Practitioner Adult Health
DX: R11.2 Nausea with vomiting, unspecified (principal); F11.20 Opioid dependence, uncomplicated
CPT/HCPCS: 36415; 80053; 80307; 81025; 83690; 96365; 96375; 99284; 80320; 81003; 85025; J1885; J2405

== ENCOUNTER 2021-01-13 18:02 | Outpatient (REF) | payer MEDICAID, SELFPAY ==
[2021-01-13 19:18] LABS: Abs Immature Grans 0.06 10^3/uL (0.0-0.06); Absolute Lymphocyte Count 3.72 10^3/uL (1.2-3.4); Absolute Monocyte Count 0.67 10^3/uL (0.1-0.8); Basophils % 0.5; Eosinophils % 1.7; HGB 14.3 g/dL (11.2-15.7); Immature Grans % 0.3; Lymphocytes % 21.7; MCHC 32.5 % (32.0-36.0); MCV 95.2 fL (80-95); MPV 10.8 fL (8.0-11.0); Monocytes % 3.9; Neutrophils % 71.9; Nucleated RBC 0 %; Platelet Count 420 10^3/uL (130-400); RBC 4.62 10^6/uL (3.93-5.22); RDW 12.4 % (11.7-14.6); WBC 17.16 10^3/uL (4.4-10.8)
[2021-01-13 19:19] LABS: Absolute Basophil Count 0.09 10^3/uL (0.0-0.2); Absolute Eosinophil Count 0.29 10^3/uL (0.0-0.7); Absolute Neutrophil Count 12.34 10^3/uL (1.2-6.7)
[2021-01-13 19:27] LABS: ESR 2 mm/hr (0-20)
[2021-01-13 19:44] LABS: ALT 25 U/L (14-59); AST 12 U/L (15-37); Albumin 4.1 g/dL (3.4-5.0); Alkaline Phosphatase 77 U/L (46-116); Anion Gap 9.3 mmol/L (3-11); BUN 15 mg/dL (7-18); Bilirubin, Total 0.2 mg/dL (0.2-1.0); CO2 26.7 mmol/L (21.0-32.0); CREATININE 0.7 mg/dL (0.55-1.02); Calcium 8.7 mg/dL (8.5-10.1); Chloride 102 mmol/L (98-107); Glucose 131 mg/dL (74-106); Potassium 4.7 mmol/L (3.5-5.1); Sodium 138 mmol/L (136-145); Total Protein 7.1 g/dL (6.4-8.2)
== END 2021-01-13 18:03 | disposition home or self-care (01) ==
LOC: LBN 18:02
PROVIDERS: PCP Nurse Practitioner Adult Health; Visit Provider Nurse Practitioner Family
DX: R22.32 Localized swelling, mass and lump, left upper limb (principal)
CPT/HCPCS: 80053; 85652; 85025

== ENCOUNTER 2021-01-17 01:16 | Outpatient (CLI) | payer MEDICAID, SELFPAY ==
--- NOTE | 2021-01-17 09:54 | DI.RAD_ITS ---
Exam(s) XR HAND LT COMPLETE EXAM: XR HAND LT COMPLETE CLINICAL HISTORY: SWELLING LT HAND, R22.32. TECHNIQUE: 2D digital imaging was performed of the left hand. Three views were obtained. AP, later al and oblique views were obtained. COMPARISON: No exams were available for comparison FINDINGS: BONES: No acute fracture is present. No bony destructive lesion is seen. JOINTS: No dislocation present. SOFT TISSUE: Normal. IMPRESSION: Unremarkable radiographs of the left hand. DATA REPOSITORY: RADIATION DOSE DELIVERED:
== END 2021-01-17 01:36 ==
PROVIDERS: PCP Nurse Practitioner Adult Health; Visit Provider Nurse Practitioner Family
DX: R22.32 Localized swelling, mass and lump, left upper limb (principal)
CPT/HCPCS: 73130

== ENCOUNTER 2021-01-24 02:52 | Outpatient (CLI) | payer MEDICAID, SELFPAY ==
[2021-01-24 11:07] LABS: Abs Immature Grans 0.03 10^3/uL (0.0-0.06); Absolute Basophil Count 0.06 10^3/uL (0.0-0.2); Absolute Eosinophil Count 0.22 10^3/uL (0.0-0.7); Absolute Lymphocyte Count 2.52 10^3/uL (1.2-3.4); Absolute Monocyte Count 0.75 10^3/uL (0.1-0.8); Absolute Neutrophil Count 7.09 10^3/uL (1.2-6.7); Basophils % 0.6; Eosinophils % 2.1; HGB 13.2 g/dL (11.2-15.7); Immature Grans % 0.3; Lymphocytes % 23.6; MCHC 32.2 % (32.0-36.0); MCV 96.2 fL (80-95); MPV 9.3 fL (8.0-11.0); Neutrophils % 66.4; Nucleated RBC 0 %; Platelet Count 426 10^3/uL (130-400); RBC 4.26 10^6/uL (3.93-5.22); RDW 12.3 % (11.7-14.6); RDW-SD 44.2 fL; WBC 10.67 10^3/uL (4.4-10.8)
[2021-01-24 12:05] LABS: HCG Quant, Pregnancy 1 mIU/mL (1-3)
[2021-01-25 12:41] LABS: Lyme Ab w Rflx to Lyme Confirm Negative (Negative)
== END 2021-01-24 02:53 | disposition home or self-care (01) ==
LOC: LBO 02:53
PROVIDERS: Advanced Practice Midwife; PCP Nurse Practitioner Adult Health; Visit Provider Nurse Practitioner Adult Health
DX: O03.9 Complete or unspecified spontaneous abortion without complication (principal); D72.829 Elevated white blood cell count, unspecified; M25.541 Pain in joints of right hand; M25.542 Pain in joints of left hand
CPT/HCPCS: 36415; 84702; 85025; 86618

== ENCOUNTER 2021-09-15 18:08 | Outpatient (REF) | payer MEDICAID, SELFPAY ==
[2021-09-15 21:27] LABS: Abs Immature Grans 0.03 10^3/uL (0.0-0.06); HCT 41.2 % (36.0-46.0); HGB 14.2 g/dL (11.2-15.7); MCH 31.6 pg (27.0-33.0); MCHC 34.5 % (32.0-36.0); MCV 92 fL (80-95); MPV 10.2 fL (8.0-11.0); Platelet Count 398 10^3/uL (130-400); RBC 4.49 10^6/uL (3.93-5.22); RDW 11.1 % (11.7-14.6); RDW-SD 37.8 fL; WBC 10.45 10^3/uL (4.4-10.8)
[2021-09-15 21:29] LABS: Bilirubin Negative (Negative); Blood Negative (Negative); Clarity Clear (Clear); Glucose Negative (Negative); Ketones Negative (Negative); Leukocyte Esterase Small (Negative); Nitrite Positive (Negative); Specific Gravity 1.015 (1.005-1.025); Urobilinogen 0.2 EU/dL (Up TO 0.2)
[2021-09-15 21:32] LABS: ALT 25 U/L (14-59); AST 28 U/L (15-37); Albumin 4.1 g/dL (3.4-5.0); Alkaline Phosphatase 89 U/L (46-116); Anion Gap 12.1 mmol/L (3-11); BUN 11 mg/dL (7-18); Bilirubin, Total 0.3 mg/dL (0.2-1.0); CO2 25.9 mmol/L (21.0-32.0); CREATININE 0.6 mg/dL (0.55-1.02); Calcium 9.2 mg/dL (8.5-10.1); Chloride 102 mmol/L (98-107); Glucose 98 mg/dL (74-106); Lipase 71 U/L (73-393); Potassium 3.5 mmol/L (3.5-5.1); Sodium 140 mmol/L (136-145); Total Protein 7.3 g/dL (6.4-8.2)
[2021-09-15 21:34] LABS: Bacteria Few HPF (Negative); Casts Negative LPF (Negative); Crystals Negative HPF (Negative); Epithelial Cells Few HPF (Negative); Mucus Negative (Negative)
[2021-09-15 21:35] LABS: C & S Indicated? C&S Done As Ordered
[2021-09-15 21:44] LABS: Absolute Lymphocyte Count 4.91 10^3/uL (1.2-3.4); Absolute Monocyte Count 0.84 10^3/uL (0.1-0.8); Atypical Lymphocytes % 2; Diff Comment Manual Differential; RBC Morphology Normal
[2021-09-17 14:15] LABS: COVID-19 RT-PCR UVMMC Result Negative (Negative)
== END 2021-09-15 18:09 | disposition home or self-care (01) ==
LOC: LBN 18:08
PROVIDERS: PCP Nurse Practitioner Adult Health; Visit Provider Physician Assistant Medical
DX: Z20.822 Contact with and (suspected) exposure to COVID-19 (principal); R11.2 Nausea with vomiting, unspecified
CPT/HCPCS: 80053; 83690; 87077; U0003; 81003; 81015; 85025; 87086; 87186

== ENCOUNTER 2021-09-16 13:43 | Emergency (ER) | payer MEDICAID, SELFPAY ==
--- NOTE | 2021-09-16 13:45 | DI.CT_ITS ---
Exam(s) CT ABDOMEN PELVIS WO EXAM: CT ABDOMEN PELVIS WO INDICATION: LUQ abd pain hx of alcoholism. COMPARISON: CT CT CHEST/ABD/PEL W from 01/05/2019 TECHNIQUE: CT examination was performed without contrast administration. FINDINGS: Images obtained through the lung bases are unremarkable. Visualized portions of the liver and splee n appear intact. Visualized portions of the pancreas are unremarkable. Gallbladder and bile ducts are CT normal. Abdominal aorta is of normal diameter. No significant abdominal wall hernia. No significant abdominal or pelvic adenopathy. Adrenals appear normal bilaterally. The kidneys are normal in size and shape. There is no evidence of a renal mass, or hydronephrosis. There is a 4 millimeter nonobstructing left lower pole renal calculus.. No ureteral dilatation or calcification identified. Urinary bladder is unremarkable in appearance. No evidence of appendicitis. There is a question of mild wall thickening of portions of the descendi ng colon and sigmoid, please correlate regarding possibility of colitis. No other fight focal bowel abnormality seen. IMPRESSION: No evidence of urinary tract obstruction. Nonobstructing left lower pole renal calculus noted. Question mild wall thickening of descending to sigmoid colon, consider colitis. RADIATION DOSE DELIVERED: 669.26mGy.cm DLP 669.26mGy.cm Total DLP !Error CTDIvol RADIATION OPTIMIZATION: All CT scans at this facility use at least one of these dose optimization te chniques: automated exposure control; mA and/or kV adjustment per patient size (includes targeted exa ms where dose is matched to clinical indication); or iterative reconstruction.
[2021-09-16 13:51] VITALS: BP 166/97; PULSE 109; RESP 18; TEMP 36.5; O2SAT 98
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
[2021-09-16 14:34] LABS: Bilirubin Negative (Negative); Blood Negative (Negative); Clarity Sl Cloudy (Clear); Glucose Negative (Negative); Ketones Negative (Negative); Leukocyte Esterase Small (Negative); Nitrite Positive (Negative); Specific Gravity 1.025 (1.005-1.025); Urobilinogen 0.2 EU/dL (Up TO 0.2); pH 6.5 (5-8)
[2021-09-16] MEDS: Lidocaine 2% Viscous 15 ML CUP PO (14:39)
[2021-09-16] MEDS: Mylanta Suspension 30 ML CUP PO (14:39)
[2021-09-16 14:41] LABS: Abs Immature Grans 0.04 10^3/uL (0.0-0.06); Absolute Basophil Count 0.04 10^3/uL (0.0-0.2); Absolute Eosinophil Count 0.08 10^3/uL (0.0-0.7); Absolute Lymphocyte Count 2.74 10^3/uL (1.2-3.4); Absolute Monocyte Count 0.53 10^3/uL (0.1-0.8); Absolute Neutrophil Count 6.19 10^3/uL (1.2-6.7); Basophils % 0.4; Eosinophils % 0.8; HCT 38.6 % (36.0-46.0); HGB 13.3 g/dL (11.2-15.7); Immature Grans % 0.4; Lymphocytes % 28.5; MCH 31.9 pg (27.0-33.0); MCHC 34.5 % (32.0-36.0); MCV 93 fL (80-95); Monocytes % 5.5; Neutrophils % 64.4; Platelet Count 345 10^3/uL (130-400); RBC 4.17 10^6/uL (3.93-5.22); RDW 11.2 % (11.7-14.6); RDW-SD 38.3 fL; WBC 9.62 10^3/uL (4.4-10.8)
[2021-09-16 14:43] LABS: Bacteria Many HPF (Negative); C & S Indicated? Yes; Casts Negative LPF (Negative); Crystals Negative HPF (Negative); Epithelial Cells Few HPF (Negative); Mucus Trace (Negative); RBC 0-2 HPF (0-2)
[2021-09-16] MEDS: LORazepam 20 MG/10 ML VIAL IVP (14:45)
[2021-09-16] MEDS: Normal Saline 1,000 ML 1000 ML IV (14:46)
[2021-09-16] MEDS: Famotidine 20 MG/2 ML VIAL IVP (14:46)
[2021-09-16] MEDS: Ondansetron 4 MG/2 ML VIAL IVP (14:46)
[2021-09-16 14:57] LABS: ALT 25 U/L (14-59); AST 39 U/L (15-37); Albumin 3.7 g/dL (3.4-5.0); Alkaline Phosphatase 86 U/L (46-116); Anion Gap 12.3 mmol/L (3-11); BUN 8 mg/dL (7-18); Bilirubin, Total 0.5 mg/dL (0.2-1.0); CO2 23.7 mmol/L (21.0-32.0); CREATININE 0.6 mg/dL (0.55-1.02); Calcium 8.6 mg/dL (8.5-10.1); Chloride 104 mmol/L (98-107); Glucose 176 mg/dL (74-106); Lipase 60 U/L (73-393); Potassium 3.3 mmol/L (3.5-5.1); Sodium 140 mmol/L (136-145); Total Protein 6.7 g/dL (6.4-8.2)
[2021-09-16 16:02] LABS: *AMPHETAMINES SCREEN URINE Negative (Negative); *BARBITURATES SCREEN URINE Negative (Negative); *BENZODIAZEPINES SCREEN URINE Negative (Negative); Cannabinoids THC Positive (Negative); Cocaine Screen,Urine Negative (Negative); METHADONE URINE SCREEN Negative (Negative); OPIATES URINE SCREEN Negative (Negative)
[2021-09-16 16:10] LABS: Tricyclic Antidepressants Negative (Negative)
--- NOTE | 2021-09-16 17:39 | DI.VRAD_ITS ---
PROCEDURE INFORMATION: Exam: CT Abdomen And Pelvis Without Contrast Exam date and time: 09/16/2021 4:37 PM Age: 26 years old Clinical indication: Abdominal pain; Localized; Left upper quadrant (luq); Patient HX: Luq pain, HX alcoholism TECHNIQUE: Imaging protocol: Computed tomography of the abdomen and pelvis without contrast. COMPARISON: CT CHEST/ABD/PEL W 05/01/2019 20:14 FINDINGS: Liver: Hepatic steatosis. Hepatomegaly. Gallbladder and bile ducts: Normal. No calcified stones. No ductal dilation. Pancreas: Normal. No ductal dilation. Spleen: Normal. No splenomegaly. Adrenal glands: Normal. No mass. Kidneys and ureters: 0.4 cm inferior left renal calculi new compared with prior study. No hydronephrosis. Stomach and bowel: Fluid filled small bowel left upper quadrant measuring 2.7 cm. Appendix: No evidence of appendicitis. Intraperitoneal space: Unremarkable. No free air. No significant fluid collection. Vasculature: Unremarkable. No abdominal aortic aneurysm. Lymph nodes: Unremarkable. No enlarged lymph nodes. Urinary bladder: Unremarkable as visualized. Reproductive: Unremarkable as visualized. Bones/joints: Unremarkable. No acute fracture. Soft tissues: Umbilical hernia. IMPRESSION: 1. Fluid distended small bowel left upper quadrant. 2. Non-obstructing inferior left renal calculi. 3. Hepatic steatosis. Hepatomegaly. Dictated and Authenticated by: Nikia Quan MD. Ordering:YULISA Aldana MD
[2021-09-16 18:03] VITALS: BP 132/92; PULSE 74; RESP 16; TEMP 36.1; O2SAT 98
[2021-09-16] MEDS: Cefpodoxime 200 MG TAB 400 MG PO (18:09)
[2021-09-16 18:30] VITALS: BP 128/76; PULSE 71; RESP 18; TEMP 36.6; O2SAT 98
--- NOTE | 2021-09-20 15:10 | NUR.NOTE ---
Nursing Note: Received call from pt stating she went to her pharmacy to supervisor picking crew her abx for UTI and it was not there. Upon reviewing of the chart it appears the escript was not sent. Received verbal orders from Dr. George for Cefpodoxime 100mg PO Q12hrs x 7 days. Prescription was called in to [facility] in [facility] per pt request. Pharmacist reports pt has a prescription pending supervisor picking crew for Bactrim and questions whether they should both be taken. Per Provider Bactrim will cover her UTI and pt was contacted back and told Bactrim had been called in and ready for supervisor picking crew by an outside clinic. Pt states she had a voicemail from the outside clinic that she had yet to listen to and was not aware the bactrim was called in. Pt verbalized understanding that the bactrim was ready to be picked up and would cover her UTI.
== END 2021-09-16 18:08 | disposition home or self-care (01) ==
PROVIDERS: Emergency Provider Emergency Medicine; PCP Nurse Practitioner Adult Health
DX: K52.9 Noninfective gastroenteritis and colitis, unspecified (principal); N39.0 Urinary tract infection, site not specified; B96.20 Unspecified Escherichia coli [E. coli] as the cause of diseases classified elsewhere; B96.89 Other specified bacterial agents as the cause of diseases classified elsewhere; R00.0 Tachycardia, unspecified; F17.210 Nicotine dependence, cigarettes, uncomplicated
CPT/HCPCS: 80053; 80307; 81025; 83690; 87077; 96361; 96374; 96375; 99284; 74176; 81003; 81015; 85025; 87086; 87186; J2405; J3490

== ENCOUNTER → 2021-10-06 01:17 | Outpatient (CLI) | payer MEDICAID, SELFPAY ==
--- NOTE | 2021-10-06 08:00 | DI.US_ITS ---
Exam(s) US LOWER EXTREMITY VENOUS RT EXAM: US LOWER EXTREMITY VENOUS RT CLINICAL HISTORY: R leg swelling, r/o DVT,M79.89. TECHNIQUE: Lower extremity venous ultrasound performed using grayscale, color-flow, and spectral Do ppler analysis. COMPARISON: No exams were available for comparison FINDINGS: The common femoral, femoral and popliteal veins demonstrate normal compressibility, augmentation, and color Doppler. The posterior tibial veins are patent. No saphenous vein thrombosis or other superfi cial venous thrombosis is seen. No hematoma or Degroot's cyst is seen. IMPRESSION: Negative lower extremity ultrasound. No evidence of DVT. DATA REPOSITORY:
== END ==
PROVIDERS: PCP Nurse Practitioner Adult Health; Visit Provider Family Medicine
DX: M79.89 Other specified soft tissue disorders (principal)
CPT/HCPCS: 93971

== ENCOUNTER 2021-10-06 15:54 | Outpatient (CLI) | payer MEDICAID, SELFPAY ==
[2021-10-08 18:19] LABS: CRP, High Sensitivity 0.54 mg/L (See Note)
[2021-10-09 10:25] LABS: Lyme Ab w Rflx to Lyme Confirm Negative (Negative)
[2021-10-10 21:40] LABS: Anaplasma phagocytophilum Negative (Negative); B. miyamotoi PCR Negative (Negative); Babesia divergens/MO-1 Negative (Negative); Babesia duncani Negative (Negative); Babesia microti Negative (Negative); Ehrlichia chaffeensis Negative (Negative); Ehrlichia ewingii/canis Negative (Negative); Ehrlichia muris eauclairensis Negative (Negative)
== END 2021-10-06 15:55 | disposition home or self-care (01) ==
LOC: LBO 15:54
PROVIDERS: PCP Nurse Practitioner Adult Health; Visit Provider Family Medicine
DX: M79.89 Other specified soft tissue disorders (principal); M25.561 Pain in right knee; W57.XXXA Bitten or stung by nonvenomous insect and other nonvenomous arthropods, initial encounter
CPT/HCPCS: 36415; 86141; 87798; 86618

== ENCOUNTER 2021-10-13 21:21 | Emergency (ER) | payer MEDICAID, SELFPAY ==
[2021-10-13 21:35] VITALS: BP 141/76; PULSE 50; RESP 16; TEMP 36.8; O2SAT 100
--- NOTE | 2021-10-13 22:00 | RT.EKG_ITS ---
APPROVED REPORT Exam: Resting ECG Reason for Exam: antiemetics, nausea, vomiting Patient Location: E HR:46 bpm ECG Measurements Heart Rate 46 AXIS MA 155 P 65 QRSd 91 QRS 73 QT 477 T 58 QTc 416 Conclusion Sinus bradycardia...rate< 60. Sinus. Normal axis. No STEMI. I have reviewed and interpreted ECG and agree with software generated interpretation.
[2021-10-13 22:32] LABS: Abs Immature Grans 0.05 10^3/uL (0.0-0.06); Absolute Basophil Count 0.04 10^3/uL (0.0-0.2); Absolute Eosinophil Count 0.15 10^3/uL (0.0-0.7); Absolute Lymphocyte Count 2.62 10^3/uL (1.2-3.4); Absolute Monocyte Count 0.79 10^3/uL (0.1-0.8); Absolute Neutrophil Count 9.66 10^3/uL (1.2-6.7); Basophils % 0.3; Eosinophils % 1.1; HCT 36.1 % (36.0-46.0); Immature Grans % 0.4; Lymphocytes % 19.7; MCH 31.8 pg (27.0-33.0); MCHC 33.2 % (32.0-36.0); MCV 96 fL (80-95); MPV 9.6 fL (8.0-11.0); Monocytes % 5.9; Neutrophils % 72.6; Platelet Count 268 10^3/uL (130-400); RBC 3.77 10^6/uL (3.93-5.22); RDW 12.8 % (11.7-14.6); WBC 13.31 10^3/uL (4.4-10.8)
[2021-10-13] MEDS: Lactated Ringers 1,000 ML 1000 ML IV (22:35)
[2021-10-13] MEDS: Metoclopramide 10 MG/2 ML VIAL IVP (22:40)
[2021-10-13 22:45] LABS: ALT 24 U/L (14-59); AST 10 U/L (15-37); Albumin 3.3 g/dL (3.4-5.0); Alkaline Phosphatase 93 U/L (46-116); Anion Gap 7.5 mmol/L (3-11); BUN 3 mg/dL (7-18); Bilirubin, Total 0.4 mg/dL (0.2-1.0); CO2 26.5 mmol/L (21.0-32.0); CREATININE 0.5 mg/dL (0.55-1.02); Calcium 8.4 mg/dL (8.5-10.1); Chloride 109 mmol/L (98-107); Glucose 100 mg/dL (74-106); Magnesium 1.7 mg/dL (1.8-2.4); Potassium 3.2 mmol/L (3.5-5.1); Sodium 143 mmol/L (136-145); Total Protein 6.3 g/dL (6.4-8.2)
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
== END 2021-10-13 23:46 | disposition home or self-care (01) ==
PROVIDERS: Emergency Provider Physician Assistant; PCP Nurse Practitioner Adult Health
DX: R51.9 Headache, unspecified (principal); R11.0 Nausea; F17.210 Nicotine dependence, cigarettes, uncomplicated
CPT/HCPCS: 36415; 80053; 93005; 96361; 96374; 96375; 99284; 83735; 85025; 93010; J0131; J2765

== ENCOUNTER 2021-12-08 15:58 | Outpatient (REF) | payer MEDICAID, SELFPAY ==
[2021-12-10 10:22] LABS: COVID-19 RT-PCR UVMMC Result Negative (Negative)
== END 2021-12-08 15:59 | disposition home or self-care (01) ==
LOC: LBN 15:58
PROVIDERS: PCP Nurse Practitioner Adult Health; Visit Provider Physician Assistant Medical
DX: Z20.822 Contact with and (suspected) exposure to COVID-19 (principal); R05.8 Other specified cough
CPT/HCPCS: U0003

== ENCOUNTER 2022-05-14 15:22 | Outpatient (REF) | payer MEDICAID, SELFPAY ==
--- NOTE | 2022-05-14 14:45 | PAPFT_PTH ---
PATIENT: Denia Hartmann LOC: [facility] U#:[id number] AGE/SX: / ROOM: RE05/14/[address]: Mary Ozuna APRN : 1995 BED: DIS: 05/14/2022 SPEC #: [id number] RECD: 05/14/22 17:57 STATUS: MARISELA REQ #: [id number] DOUGLAS: 05/14/22 14:[address]: Mary Ozuna DEPT: [facility] Cytology RECD BY: Chante Pinon Tissues: 1 - CX/ENDOCX FOR PAP SMEARS Procedures: PAP THIN PREP/UVM Screening Comments: [id number]
[2022-05-16 14:26] LABS: Chlamydia Result Negative (Negative); GC Result Negative (Negative)
== END 2022-05-14 15:23 | disposition home or self-care (01) ==
LOC: LBN 15:22
PROVIDERS: PCP Nurse Practitioner Adult Health; Referring Provider Nurse Practitioner Adult Health; Visit Provider Nurse Practitioner Adult Health
DX: Z11.3 Encounter for screening for infections with a predominantly sexual mode of transmission (principal); Z12.4 Encounter for screening for malignant neoplasm of cervix; N89.8 Other specified noninflammatory disorders of vagina; A59.01 Trichomonal vulvovaginitis
CPT/HCPCS: 87491; 87591; 88142; 87480; 87510; 87660

== ENCOUNTER 2022-06-25 11:56 | Outpatient (REF) | payer MEDICAID, SELFPAY ==
[2022-06-25 16:52] LABS: Abs Immature Grans 0.04 10^3/uL (0.0-0.06); Absolute Basophil Count 0.05 10^3/uL (0.0-0.2); Absolute Eosinophil Count 0.14 10^3/uL (0.0-0.7); Absolute Lymphocyte Count 2.25 10^3/uL (1.2-3.4); Absolute Monocyte Count 0.58 10^3/uL (0.1-0.8); Absolute Neutrophil Count 7.39 10^3/uL (1.2-6.7); Basophils % 0.5; Eosinophils % 1.3; HCT 36.7 % (36.0-46.0); HGB 12.8 g/dL (11.2-15.7); Immature Grans % 0.4; Lymphocytes % 21.5; MCH 32.9 pg (27.0-33.0); MCHC 34.9 % (32.0-36.0); MCV 94 fL (80-95); MPV 10.9 fL (8.0-11.0); Monocytes % 5.6; Neutrophils % 70.7; Platelet Count 300 10^3/uL (130-400); RBC 3.89 10^6/uL (3.93-5.22); RDW 12.9 % (11.7-14.6); RDW-SD 44.4 fL; WBC 10.45 10^3/uL (4.4-10.8)
[2022-06-25 17:29] LABS: ALT 98 U/L (14-59); AST 76 U/L (15-37); Albumin 3.9 g/dL (3.4-5.0); Alkaline Phosphatase 100 U/L (46-116); Anion Gap 17.4 mmol/L (3-11); BUN 4 mg/dL (7-18); Bilirubin, Total 0.5 mg/dL (0.2-1.0); CO2 26.6 mmol/L (21.0-32.0); CREATININE 0.7 mg/dL (0.55-1.02); Calcium 8.9 mg/dL (8.5-10.1); Chloride 96 mmol/L (98-107); Estimated GFR 121.49 (mL/min/1.73m2); Glucose 93 mg/dL (74-106); Magnesium 1.2 mg/dL (1.8-2.4); Potassium 3.2 mmol/L (3.5-5.1); Sodium 140 mmol/L (136-145); TSH (W/Ref FT4) 0.79 uIU/mL (0.36-3.74); Total Protein 7.2 g/dL (6.4-8.2)
== END 2022-06-25 11:57 | disposition home or self-care (01) ==
LOC: LBN 11:56
PROVIDERS: PCP Nurse Practitioner Adult Health; Visit Provider Nurse Practitioner Adult Health
DX: R55 Syncope and collapse (principal); R68.89 Other general symptoms and signs; R82.998 Other abnormal findings in urine; F41.8 Other specified anxiety disorders
CPT/HCPCS: 80053; 87077; 83735; 84443; 85025; 87086; 87186

== ENCOUNTER 2022-06-29 20:32 | Emergency (ER) | payer MEDICAID, SELFPAY ==
[2022-06-29 20:39] VITALS: BP 136/101; PULSE 96; RESP 16; TEMP 36.9; O2SAT 100
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
[2022-06-29] MEDS: Ibuprofen 600 MG TAB PO (22:09)
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
== END 2022-06-29 22:45 | disposition home or self-care (01) ==
PROVIDERS: Emergency Provider Emergency Medicine; PCP Nurse Practitioner Adult Health
DX: S06.0X0A Concussion without loss of consciousness, initial encounter; Y04.2XXA Assault by strike against or bumped into by another person, initial encounter; S20.212A Contusion of left front wall of thorax, initial encounter
CPT/HCPCS: 99283; 71046

== ENCOUNTER 2022-07-11 15:37 | Outpatient (REF) | payer MEDICAID, SELFPAY | END 2022-07-11 15:38 | disposition home or self-care (01) | LOC: LBN 15:37 | PROVIDERS: PCP Nurse Practitioner Adult Health; Referring Provider Nurse Practitioner Adult Health; Visit Provider Nurse Practitioner Adult Health | DX: R30.0 Dysuria (principal); N89.8 Other specified noninflammatory disorders of vagina | CPT/HCPCS: 87077; 87086; 87186; 87480; 87510; 87660 ==

== ENCOUNTER 2022-09-09 10:37 | Emergency (ER) | payer MEDICAID, SELFPAY ==
[2022-09-09] VITALS (18 sets, daily range): BP systolic 117–133; BP diastolic 72–91; PULSE 63–86; RESP 11–22; TEMP 36.4–36.7; O2SAT 97–100
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
[2022-09-09] MEDS: Normal Saline 1,000 ML 1000 ML IV (10:59)
[2022-09-09] MEDS: Droperidol 5 MG/2 ML VIAL 2.5 MG IVP (11:00)
[2022-09-09 11:14] LABS: Abs Immature Grans 0.06 10^3/uL (0.0-0.06); Absolute Basophil Count 0.07 10^3/uL (0.0-0.2); Absolute Eosinophil Count 0.23 10^3/uL (0.0-0.7); Absolute Lymphocyte Count 3.88 10^3/uL (1.2-3.4); Absolute Monocyte Count 0.63 10^3/uL (0.1-0.8); Basophils % 0.6; Eosinophils % 2.1; HCT 46.7 % (36.0-46.0); Immature Grans % 0.5; Lymphocytes % 35.1; MCH 31.6 pg (27.0-33.0); MCHC 34.3 % (32.0-36.0); MCV 92 fL (80-95); MPV 10.3 fL (8.0-11.0); Monocytes % 5.7; Platelet Count 340 10^3/uL (130-400); RBC 5.06 10^6/uL (3.93-5.22); RDW 12.5 % (11.7-14.6); RDW-SD 42.6 fL; WBC 11.05 10^3/uL (4.4-10.8)
[2022-09-09 11:15] LABS: Absolute Neutrophil Count 6.19 10^3/uL (1.2-6.7)
[2022-09-09 11:39] LABS: HCG Qual (Serum) Negative
[2022-09-09 11:54] LABS: ALT 18 U/L (14-59); AST 16 U/L (15-37); Albumin 4.4 g/dL (3.4-5.0); Alkaline Phosphatase 85 U/L (46-116); Anion Gap 14.6 mmol/L (3-11); BUN 8 mg/dL (7-18); Bilirubin, Total 0.4 mg/dL (0.2-1.0); CO2 26.4 mmol/L (21.0-32.0); CREATININE 0.8 mg/dL (0.55-1.02); Chloride 104 mmol/L (98-107); Glucose 110 mg/dL (74-106); Lipase 84 U/L (16-77); Magnesium 1.5 mg/dL (1.8-2.4); Potassium 3.8 mmol/L (3.5-5.1); Sodium 145 mmol/L (136-145); TSH (W/Ref FT4) 0.92 uIU/mL (0.36-3.74); Total Protein 8.4 g/dL (6.4-8.2)
[2022-09-09 12:35] LABS: Bilirubin Negative (Negative); Blood Negative (Negative); Clarity Sl Cloudy (Clear); Glucose Negative (Negative); Ketones Negative (Negative); Leukocyte Esterase Negative (Negative); Nitrite Negative (Negative); Urobilinogen 0.2 mg/dL (Up to 0.2); pH 7.5 (5-8)
[2022-09-09 13:11] LABS: Epithelial Cells Few HPF (Negative); RBC Negative HPF (0-2)
[2022-09-09 13:12] LABS: Bacteria Rare HPF (Negative); C & S Indicated? Yes; Casts Negative LPF (Negative); Crystals Negative HPF (Negative); Mucus Negative (Negative); Other Cells Few Renal (Negative)
--- NOTE | 2022-09-12 08:29 | NUR.NOTE ---
Nursing Note: in chart for antibiotics
== END 2022-09-09 13:20 | disposition home or self-care (01) ==
PROVIDERS: Emergency Provider Emergency Medicine; PCP Nurse Practitioner Adult Health
DX: R11.10 Vomiting, unspecified (principal); E83.42 Hypomagnesemia; B96.20 Unspecified Escherichia coli [E. coli] as the cause of diseases classified elsewhere; F11.20 Opioid dependence, uncomplicated; F17.210 Nicotine dependence, cigarettes, uncomplicated
CPT/HCPCS: 36415; 80053; 83690; 87077; 96365; 99284; 80320; 81003; 81015; 83735; 84443; 84703; 85025; 87086; 87186; 99283; J1790

== ENCOUNTER 2022-11-08 14:43 | Emergency (ER) | payer MEDICAID, SELFPAY ==
[2022-11-08 14:45] VITALS: BP 130/70; PULSE 120; RESP 24; O2SAT 98
[2022-11-08 14:59] VITALS: RESP 20
[2022-11-08] MEDS: LORazepam 2 MG/ML VIAL 0.5 MG IM (15:10)
[2022-11-08] MEDS: Ondansetron 4 MG/2 ML VIAL IM (15:10)
--- NOTE | 2022-11-08 15:30 | RT.EKG_ITS ---
APPROVED REPORT Exam: Resting ECG Reason for Exam: OD Patient Location: E HR:89 bpm ECG Measurements Heart Rate 89 AXIS MA 158 P 73 QRSd 84 QRS 79 QT 360 T 61 QTc 439 Conclusion Sinus rhythm..V-rate 60- 99 ST elev, probable normal early repol pattern...ST elevation, age<55 Appropriate intervals. No ST segment or T wave abnormalities to suggest occlusive [place]
--- NOTE | 2022-11-08 16:45 | DI.RAD_ITS ---
Exam(s) XR CHEST 2V PA LATERAL EXAM: XR CHEST 2V PA LATERAL CLINICAL HISTORY: chest pain s/p compressions TECHNIQUE: 2D digital imaging was performed. AP and lateral views COMPARISON: CR,XR XR CHEST 2V PA LATERAL from 06/29/2022 FINDINGS: Exam is limited by suboptimal inflation HEART: Normal size. Aorta: Not dilated. PULMONARY VASCULATURE: Normal. LUNGS: Clear. PLEURAL SPACE: No pleural effusion or pneumothorax. BONE:Unremarkable for age. IMPRESSION: No acute abnormality. DATA REPOSITORY: RADIATION DOSE DELIVERED:
[2022-11-08 17:20] LABS: BE (Venous) -2 mmol/L (-2-3); HCO3 (Venous) 24 mmol/L (23-28); O2 Sat (Venous) 94 %; TCO2 (Venous) 21 mmol/L (24-29); pCO2 (Venous) 43 mmHg (41-51); pH (Venous) 7.34 (7.31-7.41); pO2 (Venous) 73 mmHg
[2022-11-08 17:22] LABS: Abs Immature Grans 0.12 10^3/uL (0.0-0.06); Absolute Basophil Count 0.06 10^3/uL (0.0-0.2); Absolute Lymphocyte Count 2.09 10^3/uL (1.2-3.4); Basophils % 0.3; Eosinophils % 0.6; HGB 15.5 g/dL (11.2-15.7); Immature Grans % 0.6; Lymphocytes % 10.9; MCH 31.1 pg (27.0-33.0); MCHC 33.7 % (32.0-36.0); MCV 92 fL (80-95); Monocytes % 2.6; Platelet Count 375 10^3/uL (130-400); RBC 4.98 10^6/uL (3.93-5.22); RDW 11.7 % (11.7-14.6); RDW-SD 40.1 fL; WBC 19.16 10^3/uL (4.4-10.8)
[2022-11-08 17:23] LABS: Absolute Eosinophil Count 0.11 10^3/uL (0.0-0.7); Absolute Neutrophil Count 16.29 10^3/uL (1.2-6.7)
[2022-11-08 17:44] LABS: HCG Qual (Serum) Negative
[2022-11-08 17:45] LABS: ALT 16 U/L (14-59); AST 16 U/L (15-37); Albumin 4.2 g/dL (3.4-5.0); Alkaline Phosphatase 95 U/L (46-116); Anion Gap 15.1 mmol/L (3-11); BUN 3 mg/dL (7-18); Bilirubin, Total 0.3 mg/dL (0.2-1.0); CO2 23.9 mmol/L (21.0-32.0); CREATININE 0.6 mg/dL (0.55-1.02); Calcium 9.7 mg/dL (8.5-10.1); Chloride 102 mmol/L (98-107); ETHANOL BLOOD 195.9 mg/dL (<10); Estimated GFR 126.09 (mL/min/1.73m2); Glucose 100 mg/dL (74-106); Potassium 3.6 mmol/L (3.5-5.1); Sodium 141 mmol/L (136-145); Total Protein 8.4 g/dL (6.4-8.2); Troponin I < 50 ng/L (<or=60)
[2022-11-08 17:54] LABS: Acetaminophen < 2 ug/mL (10-30)
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
[2022-11-08] MEDS: Normal Saline 1,000 ML 1000 ML IV (18:21)
[2022-11-08 19:17] LABS: BE (Venous) -2 mmol/L (-2-3); HCO3 (Venous) 24 mmol/L (23-28); O2 Sat (Venous) 87 %; TCO2 (Venous) 22 mmol/L (24-29); pCO2 (Venous) 47 mmHg (41-51); pH (Venous) 7.32 (7.31-7.41); pO2 (Venous) 57 mmHg
[2022-11-08 19:20] LABS: Lactate 2.4 mmol/L (0.6-1.4)
[2022-11-08 19:55] VITALS: PULSE 99; RESP 18; O2SAT 99
== END 2022-11-08 19:57 | disposition left against medical advice (07) ==
PROVIDERS: Emergency Provider Student in an Organized Health Care Education/Training Program; PCP Nurse Practitioner Adult Health
DX: T65.91XA Toxic effect of unspecified substance, accidental (unintentional), initial encounter (principal); R07.9 Chest pain, unspecified; F19.10 Other psychoactive substance abuse, uncomplicated; R00.0 Tachycardia, unspecified; Z53.29 Procedure and treatment not carried out because of patient's decision for other reasons; R41.82 Altered mental status, unspecified
CPT/HCPCS: 80053; 82805; 93005; 96372; 99285; 71046; 80320; 80329; 83605; 84484; 84703; 85025; 93010; J2060; J2405

== ENCOUNTER 2022-12-09 09:48 | Emergency (ER) | payer MEDICAID, SELFPAY ==
[2022-12-09 09:59] VITALS: BP 123/64; PULSE 69; RESP 18; TEMP 36.8; O2SAT 99
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
[2022-12-09] MEDS: ACETAMINOPHEN 1,000 MG/100 ML BTL 400 MG IVPB (11:01)
[2022-12-09] MEDS: Naloxone 0.4 MG/ML VIAL ×2 (11:02→12:09)
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
[2022-12-09] MEDS: Tetracaine 0.5% 4 ML BTL OP (12:09)
[2022-12-09] MEDS: Ciprofloxacin 0.3% 2.5 ML BTL OS (12:50)
[2022-12-09] MEDS: Fluorescein STRIPS 100/BOX 1 MG (13:01)
== END 2022-12-09 12:55 | disposition home or self-care (01) ==
PROVIDERS: Emergency Provider Emergency Medicine; PCP Nurse Practitioner Adult Health
DX: T74.11XA Adult physical abuse, confirmed, initial encounter (principal); S05.02XA Injury of conjunctiva and corneal abrasion without foreign body, left eye, initial encounter; S22.32XA Fracture of one rib, left side, initial encounter for closed fracture; F11.10 Opioid abuse, uncomplicated; F17.210 Nicotine dependence, cigarettes, uncomplicated; Y07.030 Male partner, current, perpetrator of maltreatment and neglect
CPT/HCPCS: 71101; 96374; 99284; 70450; 70486; J0131; J2310

== ENCOUNTER 2022-12-31 16:39 | Outpatient (REF) | payer MEDICAID, SELFPAY ==
[2022-12-31 19:39] LABS: *AMPHETAMINES SCREEN URINE Negative (Negative); *BARBITURATES SCREEN URINE Negative (Negative); *BENZODIAZEPINES SCREEN URINE Negative (Negative); Cannabinoids THC Negative (Negative); Cocaine Screen,Urine Positive (Negative); METHADONE URINE SCREEN Negative (Negative); OPIATES URINE SCREEN Positive (Negative)
[2022-12-31 19:44] LABS: Tricyclic Antidepressants Negative (Negative)
== END 2022-12-31 16:40 | disposition home or self-care (01) ==
LOC: LBN 16:39
PROVIDERS: PCP Nurse Practitioner Adult Health; Referring Provider Nurse Practitioner Adult Health; Visit Provider Nurse Practitioner Adult Health
DX: F11.10 Opioid abuse, uncomplicated (principal); F14.10 Cocaine abuse, uncomplicated
CPT/HCPCS: 80307

== ENCOUNTER 2023-01-01 19:42 | Emergency (ER) | payer MEDICAID, SELFPAY ==
[2023-01-01 19:40] VITALS: BP 135/85; PULSE 122; RESP 24; TEMP 36.8; O2SAT 97
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
== END 2023-01-01 20:12 | disposition home or self-care (01) ==
PROVIDERS: Emergency Provider Student in an Organized Health Care Education/Training Program; PCP Nurse Practitioner Adult Health
DX: F10.120 Alcohol abuse with intoxication, uncomplicated (principal); F19.10 Other psychoactive substance abuse, uncomplicated; F17.210 Nicotine dependence, cigarettes, uncomplicated; Z59.02 Unsheltered homelessness
CPT/HCPCS: 99283

== ENCOUNTER 2023-01-16 16:18 | Outpatient (REF) | payer MEDICAID, SELFPAY ==
[2023-01-16 20:29] LABS: *AMPHETAMINES SCREEN URINE Negative (Negative); *BARBITURATES SCREEN URINE Negative (Negative); *BENZODIAZEPINES SCREEN URINE Positive (Negative); Cannabinoids THC Positive (Negative); Cocaine Screen,Urine Positive (Negative); METHADONE URINE SCREEN Negative (Negative); OPIATES URINE SCREEN Negative (Negative)
[2023-01-16 20:31] LABS: Tricyclic Antidepressants Negative (Negative)
== END 2023-01-16 16:19 | disposition home or self-care (01) ==
LOC: LBN 16:18
PROVIDERS: PCP Nurse Practitioner Adult Health; Visit Provider Nurse Practitioner Adult Health
DX: F11.20 Opioid dependence, uncomplicated (principal)
CPT/HCPCS: 80307

== ENCOUNTER 2023-01-22 19:55 | Emergency (ER) | payer MEDICAID, SELFPAY ==
[2023-01-22 19:58] VITALS: BP 152/99; PULSE 117; RESP 18; TEMP 37.3
[2023-01-22 20:36] LABS: Abs Immature Grans 0.03 10^3/uL (0.0-0.06); Absolute Basophil Count 0.04 10^3/uL (0.0-0.2); Absolute Eosinophil Count 0.12 10^3/uL (0.0-0.7); Absolute Lymphocyte Count 3.66 10^3/uL (1.2-3.4); Absolute Neutrophil Count 8.05 10^3/uL (1.2-6.7); Basophils % 0.3; HCT 41.8 % (36.0-46.0); HGB 14.3 g/dL (11.2-15.7); Immature Grans % 0.2; Lymphocytes % 29.5; MCH 28.2 pg (27.0-33.0); MCHC 34.2 % (32.0-36.0); MCV 82 fL (80-95); MPV 9.9 fL (8.0-11.0); Platelet Count 415 10^3/uL (130-400); RBC 5.07 10^6/uL (3.93-5.22); RDW-SD 42.2 fL; WBC 12.39 10^3/uL (4.4-10.8)
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
[2023-01-22] MEDS: LORazepam 2 MG/ML VIAL IVP (20:50)
[2023-01-22] MEDS: Normal Saline 1,000 ML 1000 ML IV (20:50)
[2023-01-22] MEDS: diphenhydrAMINE 50 MG/ML VIAL 25 MG IM (20:50)
[2023-01-22] MEDS: Haloperidol 5 MG/ML VIAL 4 MG IM/IV (20:50)
[2023-01-22 21:05] LABS: ALT 26 U/L (14-59); AST 19 U/L (15-37); Alkaline Phosphatase 122 U/L (46-116); Anion Gap 11.6 mmol/L (3-11); BUN 5 mg/dL (7-18); Bilirubin, Total 0.2 mg/dL (0.2-1.0); CO2 25.4 mmol/L (21.0-32.0); CREATININE 0.7 mg/dL (0.55-1.02); Calcium 9.3 mg/dL (8.5-10.1); Chloride 109 mmol/L (98-107); ETHANOL BLOOD 337.2 mg/dL (<10); Estimated GFR 121.49 (mL/min/1.73m2); Glucose 148 mg/dL (74-106); Potassium 3.3 mmol/L (3.5-5.1); Sodium 146 mmol/L (136-145); TSH (W/Ref FT4) 0.25 uIU/mL (0.36-3.74); Total Protein 7.9 g/dL (6.4-8.2)
[2023-01-22 21:09] LABS: Acetaminophen < 2 ug/mL (10-30); Salicylate 4.5 mg/dL (<2.8)
[2023-01-22 21:21] LABS: FREE T4 0.84 ng/dL (0.76-1.46)
[2023-01-22 23:53] VITALS: BP 146/70; PULSE 70; RESP 18; TEMP 36.7; O2SAT 98
--- NOTE | 2023-01-23 04:15 | W.EDPROG ---
Date of service: 01/23/23 Time of Service: 04:15 Medical Decision Making Patient accepted in signout. Has a history of alcohol abuse and behavioral disorder. And got medication for sedation. She is now awake, alert, oriented, denies SI. She is ambulatory without difficulty. She is requesting to go home. She has contacted her grandmother for a ride. At this time she is discharged in good condition. Medical Records Medical records reviewed: Yes I reviewed the patient's medical records. Lab Data Lab results reviewed: Yes I reviewed the patient's lab results. Sign Out Sign Out Data: Sign Out Comment: Alcohol intoxication, depression, stated suicidality. Voluntarily given B-52 after she became aggressive and began slamming her phone onto the floor. Recheck in the a.m. for sobriety and mental health assessment Last updated by Lalito Jaquez DO at 01/22/23 21:54 Discharge Plan Disposition Patient Disposition: Home Condition: Stable Discharge Details Clinical Impression: ETOH abuse, Depression Primary Care Provider: Mary Ozuna ED Provider: Naty Torrez Home Meds and New Rx's Prescriptions: No Action buprenorphine-naloxone 8-2 mg tablet, sublingual 1 tab SL DAILY Rx Instructions: 12mg albuterol sulfate 2.5 mg /3 mL (0.083 %) solution for nebulization 2.5 mg inhalation Q4H PRN (Reason: shortness of breath or wheezing) Qty: 90 1RF valacyclovir 1 gram tablet See Rx Instructions .ROUTE .COMPLEX Qty: 90 3RF Dose Instruction: TAKE 1 TABLET BY MOUTH DAILY FOR HSV SUPPRESSION Rx Instructions: TAKE 1 TABLET BY MOUTH DAILY FOR HSV SUPPRESSION hydroxyzine HCl 25 mg tablet 25 mg PO TID PRN (Reason: anxiety/withdrawal) Qty: 30 1RF Rx Instructions: Withdrawal, anxiety albuterol sulfate [ProAir HFA] 90 mcg/actuation HFA aerosol inhaler 1 - 2 puff IH Q4H PRN (Reason: shortness of breath or wheezing) Qty: 6.7 1RF Rx Instructions: Please dispense with spacer gabapentin 100 mg capsule 100 mg PO BID Qty: 60 0RF dexlansoprazole [Dexilant] 30 mg capsule,biphase delayed releas 30 mg PO DAILY Qty: 90 3RF Rx Instructions: Heartburn--take on empty stomach each morning approx 30-min prior to other food and medications multivitamin Tablet 1 tab PO DAILY Qty: 90 3RF acetaminophen [Tylenol] 325 mg Capsule 650 mg PO PRN PRN ibuprofen 200 mg tablet 600 mg PO PRN PRN Discharge Instructions Additional Instructions: please avoid drinking to excess
== END 2023-01-23 04:23 | disposition home or self-care (01) ==
PROVIDERS: Student in an Organized Health Care Education/Training Program; Emergency Provider Emergency Medicine; PCP Nurse Practitioner Adult Health
DX: R52 Pain, unspecified (principal); R20.0 Anesthesia of skin; F10.10 Alcohol abuse, uncomplicated; F32.A Depression, unspecified; F43.10 Post-traumatic stress disorder, unspecified; Z72.0 Tobacco use; Z88.5 Allergy status to narcotic agent; Z88.6 Allergy status to analgesic agent; Z79.899 Other long term (current) drug therapy; Y90.8 Blood alcohol level of 240 mg/100 ml or more
CPT/HCPCS: 00123; 80053; 81025; 96374; 96375; 99284; 80320; 80329; 84439; 84443; 85025; J1200; J1630; J2060

== ENCOUNTER 2023-01-24 12:58 | Emergency (ER) | payer MEDICAID, SELFPAY ==
[2023-01-24 13:01] VITALS: BP 137/93; PULSE 98; RESP 20; TEMP 36.8; O2SAT 98
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
--- NOTE | 2023-01-26 07:39 | NUR.NOTE ---
Chart accessed to determine number of EKG orders. Order cancelled, no EKG. Nursing Note:
== END 2023-01-24 13:28 | disposition left against medical advice (07) ==
LOC: ER 13:11
PROVIDERS: Emergency Provider Physician Assistant; PCP Nurse Practitioner Adult Health
DX: Z53.21 Procedure and treatment not carried out due to patient leaving prior to being seen by health care provider (principal)
CPT/HCPCS: 80053; 80320; 83735; 84443; 85025

== ENCOUNTER 2023-01-25 15:03 | Emergency (ER) | payer MEDICAID, SELFPAY ==
[2023-01-25 15:10] VITALS: BP 140/101; PULSE 110; RESP 20; TEMP 36.8; O2SAT 99
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
--- NOTE | 2023-01-25 15:24 | W.EDPROG ---
Date of service: 01/25/23 Time of Service: 15:27 Medical Decision Making This patient was signed out to me. Please see previous notes for H&P and initial eval. In brief, 27yo F presenting with alcohol intoxication, dropped off by grandmother. Clinically intoxicated. Plan for re-eval when sober and able to ambulate steadily. On reassessment patient ambulating in room, requesting to leave. She has a steady gait. She denies any SI or thoughts of self harm. Three year old daughter is at home being cared for by a family member. Grandmother at bedside denies mental health concerns, is able to drive patient home. I have no indication to hold her against her will, ambulated out of department without waiting for discharge instructions. Sign Out Sign Out Data: Sign Out Comment: History of alcohol abuse. Currently denies suicidal ideations. Recommend reassessment after 4 to 6 hours for potential sobriety and discharge. Last updated by Lalito Jaquez DO at 01/25/23 15:21 Discharge Plan Disposition Patient Disposition: Home Condition: Good Discharge Details Chief Complaint: ETOHWithdr Clinical Impression: ETOH abuse Primary Care Provider: Mary Ozuna ED Provider: Ansley Sosa Home Meds and New Rx's Prescriptions: No Action buprenorphine-naloxone 8-2 mg tablet, sublingual 1 tab SL DAILY Rx Instructions: 12mg albuterol sulfate 2.5 mg /3 mL (0.083 %) solution for nebulization 2.5 mg inhalation Q4H PRN (Reason: shortness of breath or wheezing) Qty: 90 1RF valacyclovir 1 gram tablet See Rx Instructions .ROUTE .COMPLEX Qty: 90 3RF Dose Instruction: TAKE 1 TABLET BY MOUTH DAILY FOR HSV SUPPRESSION Rx Instructions: TAKE 1 TABLET BY MOUTH DAILY FOR HSV SUPPRESSION hydroxyzine HCl 25 mg tablet 25 mg PO TID PRN (Reason: anxiety/withdrawal) Qty: 30 1RF Rx Instructions: Withdrawal, anxiety albuterol sulfate [ProAir HFA] 90 mcg/actuation HFA aerosol inhaler 1 - 2 puff IH Q4H PRN (Reason: shortness of breath or wheezing) Qty: 6.7 1RF Rx Instructions: Please dispense with spacer gabapentin 100 mg capsule 100 mg PO BID Qty: 60 0RF dexlansoprazole [Dexilant] 30 mg capsule,biphase delayed releas 30 mg PO DAILY Qty: 90 3RF Rx Instructions: Heartburn--take on empty stomach each morning approx 30-min prior to other food and medications multivitamin Tablet 1 tab PO DAILY Qty: 90 3RF acetaminophen [Tylenol] 325 mg Capsule 650 mg PO PRN PRN ibuprofen 200 mg tablet 600 mg PO PRN PRN
== END 2023-01-25 16:20 | disposition home or self-care (01) ==
PROVIDERS: Emergency Provider Student in an Organized Health Care Education/Training Program; PCP Nurse Practitioner Adult Health
DX: F10.129 Alcohol abuse with intoxication, unspecified (principal)
CPT/HCPCS: 00123; 99283

== ENCOUNTER 2023-01-26 14:27 | Emergency (ER) | payer MEDICAID, SELFPAY ==
[2023-01-26 14:30] VITALS: BP 150/116; PULSE 120; RESP 19; TEMP 36.6; O2SAT 97
--- NOTE | 2023-01-26 14:30 | RT.EKG_ITS ---
APPROVED REPORT Exam: Resting ECG Reason for Exam: Patient Location: E HR:103 bpm ECG Measurements Heart Rate 103 AXIS NH 150 P 82 QRSd 88 QRS 91 QT 347 T 60 QTc 454 Conclusion Sinus tachycardia [address] segment changes
[2023-01-26] MEDS: Droperidol 5 MG/2 ML VIAL IVP (14:55)
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
[2023-01-26 15:05] LABS: Abs Immature Grans 0.03 10^3/uL (0.0-0.06); Absolute Basophil Count 0.05 10^3/uL (0.0-0.2); Absolute Eosinophil Count 0.12 10^3/uL (0.0-0.7); Absolute Lymphocyte Count 5.05 10^3/uL (1.2-3.4); Absolute Monocyte Count 0.36 10^3/uL (0.1-0.8); Absolute Neutrophil Count 3.87 10^3/uL (1.2-6.7); Basophils % 0.5; Eosinophils % 1.3; HCT 42.2 % (36.0-46.0); HGB 14.5 g/dL (11.2-15.7); Immature Grans % 0.3; Lymphocytes % 53.3; MCH 27.8 pg (27.0-33.0); MCHC 34.4 % (32.0-36.0); MCV 81 fL (80-95); MPV 9.8 fL (8.0-11.0); Monocytes % 3.8; Neutrophils % 40.8; RBC 5.22 10^6/uL (3.93-5.22); RDW 13.9 % (11.7-14.6); RDW-SD 41.1 fL; WBC 9.48 10^3/uL (4.4-10.8)
--- NOTE | 2023-01-26 15:08 | NUR.NOTE ---
Nursing Note: Pt stated, I am pulling this IV out, I have done this before. I just want to sleep. Pt pulled IV out and walked to waiting room. this RN reinforced care being provided and trajectory. Provider aware.
[2023-01-26 15:21] LABS: Diff Comment Diff Reviewed; RBC Morphology Normal
[2023-01-26 15:22] LABS: Platelet Count 502 10^3/uL (130-400)
[2023-01-26 15:24] LABS: ALT 19 U/L (14-59); AST 20 U/L (15-37); Albumin 4.1 g/dL (3.4-5.0); Alkaline Phosphatase 116 U/L (46-116); Anion Gap 13.2 mmol/L (3-11); BUN 11 mg/dL (7-18); Bilirubin, Total 0.3 mg/dL (0.2-1.0); CO2 23.8 mmol/L (21.0-32.0); CREATININE 0.8 mg/dL (0.55-1.02); Calcium 8.3 mg/dL (8.5-10.1); Chloride 107 mmol/L (98-107); Glucose 144 mg/dL (74-106); Lipase 66 U/L (16-77); Sodium 144 mmol/L (136-145); Total Protein 7.8 g/dL (6.4-8.2); Troponin I < 50 ng/L (<or=60)
== END 2023-01-26 15:07 | disposition left against medical advice (07) ==
LOC: ER 14:31
PROVIDERS: Emergency Provider Emergency Medicine; PCP Nurse Practitioner Adult Health
DX: R07.9 Chest pain, unspecified (principal); R11.10 Vomiting, unspecified; F17.210 Nicotine dependence, cigarettes, uncomplicated; Z53.29 Procedure and treatment not carried out because of patient's decision for other reasons
CPT/HCPCS: 80053; 83690; 93005; 96374; 99283; 83735; 84484; 85025; 93010; J1790

== ENCOUNTER 2023-01-26 18:56 | Emergency (ER) | payer MEDICAID, SELFPAY ==
[2023-01-26 19:01] VITALS: BP 132/96; PULSE 100; RESP 20; TEMP 36.3; O2SAT 98
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
[2023-01-26] MEDS: Droperidol 5 MG/2 ML VIAL 2.5 MG IM (19:20)
[2023-01-26 19:52] LABS: Bilirubin Negative (Negative); Blood Small (Negative); Clarity Sl Cloudy (Clear); Glucose Negative (Negative); Ketones Negative (Negative); Leukocyte Esterase Trace (Negative); Nitrite Positive (Negative); Specific Gravity >= 1.030 (1.005-1.025); Urobilinogen 0.2 mg/dL (Up to 0.2)
[2023-01-26 19:55] LABS: *AMPHETAMINES SCREEN URINE Negative (Negative); *BARBITURATES SCREEN URINE Negative (Negative); *BENZODIAZEPINES SCREEN URINE Negative (Negative); Cannabinoids THC Negative (Negative); Cocaine Screen,Urine Positive (Negative); METHADONE URINE SCREEN Negative (Negative); OPIATES URINE SCREEN Negative (Negative); Tricyclic Antidepressants Negative (Negative)
[2023-01-26 20:00] LABS: Bacteria Many HPF (Negative); C & S Indicated? No/Sq. Contamination; Casts 0-2 Fine Granular LPF (Negative); Crystals Negative HPF (Negative); Epithelial Cells Many HPF (Negative); Mucus Moderate (Negative); Other Cells Rare Transitional (Negative); RBC Negative HPF (0-2)
[2023-01-26] MEDS: Cephalexin 500 MG CAP PO (20:17)
[2023-01-26 20:42] LABS: ETHANOL BLOOD 370.4 mg/dL (<10)
== END 2023-01-26 20:40 | disposition home or self-care (01) ==
PROVIDERS: Emergency Provider Emergency Medicine; PCP Nurse Practitioner Adult Health
DX: R11.0 Nausea (principal); R07.9 Chest pain, unspecified; F11.20 Opioid dependence, uncomplicated; F12.90 Cannabis use, unspecified, uncomplicated; F10.10 Alcohol abuse, uncomplicated; F17.200 Nicotine dependence, unspecified, uncomplicated
CPT/HCPCS: 80307; 81025; 96372; 99283; 80320; 81003; 81015; J1790

== ENCOUNTER 2023-03-18 13:44 | Emergency (ER) | payer MEDICAID, SELFPAY ==
[2023-03-18 13:52] VITALS: BP 147/99; PULSE 110; RESP 18; TEMP 36.8; O2SAT 95
[2023-03-18 14:21] LABS: Abs Immature Grans 0.02 10^3/uL (0.0-0.06); Absolute Basophil Count 0.08 10^3/uL (0.0-0.2); Absolute Eosinophil Count 0.09 10^3/uL (0.0-0.7); Absolute Lymphocyte Count 3.88 10^3/uL (1.2-3.4); Absolute Monocyte Count 0.39 10^3/uL (0.1-0.8); Absolute Neutrophil Count 3.49 10^3/uL (1.2-6.7); Eosinophils % 1.1; HCT 41.1 % (36.0-46.0); HGB 14.3 g/dL (11.2-15.7); Immature Grans % 0.3; Lymphocytes % 48.8; MCH 31.4 pg (27.0-33.0); MCHC 34.8 % (32.0-36.0); MCV 90 fL (80-95); MPV 9.2 fL (8.0-11.0); Monocytes % 4.9; Neutrophils % 43.9; Platelet Count 414 10^3/uL (130-400); RBC 4.56 10^6/uL (3.93-5.22); RDW 14.9 % (11.7-14.6); RDW-SD 49.5 fL; WBC 7.95 10^3/uL (4.4-10.8)
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
[2023-03-18 14:23] LABS: Bilirubin Negative (Negative); Blood Negative (Negative); Clarity Clear (Clear); Glucose Negative (Negative); Ketones Negative (Negative); Leukocyte Esterase Small (Negative); Nitrite Negative (Negative); Urobilinogen 0.2 mg/dL (Up to 0.2)
[2023-03-18 14:34] LABS: Bacteria Rare HPF (Negative); C & S Indicated? No/Sq. Contamination; Casts Negative LPF (Negative); Crystals Negative HPF (Negative); Epithelial Cells Moderate HPF (Negative); Mucus Negative (Negative); Other Cells Negative (Negative); RBC Negative HPF (0-2); WBC 0-2 HPF (0-5)
[2023-03-18 14:39] LABS: Lactate 2.8 mmol/L (0.6-1.4)
[2023-03-18 14:44] LABS: ALT 22 U/L (14-59); AST 16 U/L (15-37); Alkaline Phosphatase 83 U/L (46-116); BUN 5 mg/dL (7-18); Bilirubin, Total 0.3 mg/dL (0.2-1.0); CREATININE 0.7 mg/dL (0.55-1.02); Chloride 106 mmol/L (98-107); Estimated GFR 121.49 (mL/min/1.73m2); Glucose 142 mg/dL (74-106); Lipase 98 U/L (16-77); Sodium 146 mmol/L (136-145); Total Protein 7.8 g/dL (6.4-8.2)
[2023-03-18 14:48] LABS: Potassium 2.9 mmol/L (3.5-5.1)
[2023-03-18 15:01] LABS: COVID-19 PCR Negative (Negative); Influenza A PCR Negative (Negative); Influenza B PCR Negative (Negative); RSV PCR Negative (Negative)
[2023-03-18 15:05] LABS: Source Nasopharynx
[2023-03-18 15:11] LABS: Procalcitonin < 0.1 ng/mL
== END 2023-03-18 14:43 | disposition left against medical advice (07) ==
PROVIDERS: Emergency Provider Physician Assistant; PCP Nurse Practitioner Adult Health
DX: R10.9 Unspecified abdominal pain (principal); R11.2 Nausea with vomiting, unspecified; Z53.21 Procedure and treatment not carried out due to patient leaving prior to being seen by health care provider; E87.6 Hypokalemia
CPT/HCPCS: 36415; 80053; 83690; 84145; 87637; 99283; 81003; 81015; 83605; 83735; 85025

== ENCOUNTER 2023-03-18 17:31 | Emergency (ER) | payer MEDICAID, SELFPAY ==
[2023-03-18 17:31] VITALS: BP 148/105; PULSE 106; RESP 18; TEMP 36.6; O2SAT 96
[2023-03-18 18:29] LABS: *AMPHETAMINES SCREEN URINE Negative (Negative); *BARBITURATES SCREEN URINE Negative (Negative); *BENZODIAZEPINES SCREEN URINE Negative (Negative); Cannabinoids THC Positive (Negative); Cocaine Screen,Urine Positive (Negative); METHADONE URINE SCREEN Negative (Negative); OPIATES URINE SCREEN Negative (Negative)
[2023-03-18 18:31] LABS: Tricyclic Antidepressants Negative (Negative)
[2023-03-18 18:39] LABS: Anion Gap 13.3 mmol/L (3-11); BUN 5 mg/dL (7-18); CO2 27.7 mmol/L (21.0-32.0); CREATININE 0.7 mg/dL (0.55-1.02); Calcium 8.9 mg/dL (8.5-10.1); Chloride 105 mmol/L (98-107); Estimated GFR 121.49 (mL/min/1.73m2); Glucose 139 mg/dL (74-106); Sodium 146 mmol/L (136-145)
[2023-03-18 18:42] LABS: ETHANOL BLOOD 334.2 mg/dL (<10)
[2023-03-18 18:44] LABS: Potassium 2.9 mmol/L (3.5-5.1)
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
== END 2023-03-18 18:18 | disposition left against medical advice (07) ==
PROVIDERS: Emergency Provider Physician Assistant; PCP Nurse Practitioner Adult Health
DX: R10.9 Unspecified abdominal pain (principal); F10.120 Alcohol abuse with intoxication, uncomplicated; E87.6 Hypokalemia; Y90.8 Blood alcohol level of 240 mg/100 ml or more; F17.210 Nicotine dependence, cigarettes, uncomplicated; Z53.29 Procedure and treatment not carried out because of patient's decision for other reasons
CPT/HCPCS: 80048; 80307; 99283; 80320

== ENCOUNTER 2023-04-09 22:36 | Emergency (ER) | payer MEDICAID, SELFPAY ==
[2023-04-09 22:38] VITALS: BP 163/99; PULSE 104; RESP 18; O2SAT 99
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
[2023-04-09 23:15] LABS: Bilirubin Negative (Negative); Blood Negative (Negative); Clarity Clear (Clear); Glucose Negative (Negative); Ketones Negative (Negative); Leukocyte Esterase Negative (Negative); Nitrite Negative (Negative); Urobilinogen 0.2 mg/dL (Up to 0.2)
[2023-04-09 23:32] LABS: *AMPHETAMINES SCREEN URINE Negative (Negative); *BARBITURATES SCREEN URINE Negative (Negative); *BENZODIAZEPINES SCREEN URINE Negative (Negative); Cannabinoids THC Positive (Negative); Cocaine Screen,Urine Positive (Negative); METHADONE URINE SCREEN Negative (Negative); OPIATES URINE SCREEN Negative (Negative); Tricyclic Antidepressants Negative (Negative)
--- NOTE | 2023-04-10 00:12 | NUR.NOTE ---
Nursing Note: Called and spoke with Zohra from poison control. She advised the provider should add on a VBG and that she could be treated with IV fluids and benzos as needed. Provider Dr. Uribe notified of this information at 0014.
[2023-04-10 00:13] LABS: Abs Immature Grans 0.04 10^3/uL (0.0-0.06); Absolute Eosinophil Count 0.06 10^3/uL (0.0-0.7); Absolute Lymphocyte Count 3.83 10^3/uL (1.2-3.4); Basophils % 0.8; Eosinophils % 0.5; HCT 39.6 % (36.0-46.0); HGB 13.3 g/dL (11.2-15.7); Immature Grans % 0.3; MCH 31.4 pg (27.0-33.0); MCHC 33.6 % (32.0-36.0); MCV 94 fL (80-95); Monocytes % 7.3; Neutrophils % 60.1; Platelet Count 430 10^3/uL (130-400); RBC 4.23 10^6/uL (3.93-5.22); RDW 14.6 % (11.7-14.6); WBC 12.34 10^3/uL (4.4-10.8)
[2023-04-10 00:30] LABS: Absolute Neutrophil Count 7.42 10^3/uL (1.2-6.7)
[2023-04-10 00:31] LABS: ALT 21 U/L (14-59); AST 21 U/L (15-37); Albumin 3.6 g/dL (3.4-5.0); Alkaline Phosphatase 112 U/L (46-116); Anion Gap 13.1 mmol/L (3-11); BUN 5 mg/dL (7-18); Bilirubin, Total 0.1 mg/dL (0.2-1.0); CO2 24.9 mmol/L (21.0-32.0); CREATININE 0.7 mg/dL (0.55-1.02); Calcium 9.1 mg/dL (8.5-10.1); Chloride 108 mmol/L (98-107); ETHANOL BLOOD 368.7 mg/dL (<10); Estimated GFR 120.74 (mL/min/1.73m2); Glucose 111 mg/dL (74-106); Potassium 3.3 mmol/L (3.5-5.1); Sodium 146 mmol/L (136-145); Total Protein 7.9 g/dL (6.4-8.2)
[2023-04-10 00:34] LABS: BE (Venous) 2 mmol/L (-2-3); HCO3 (Venous) 26 mmol/L (23-28); pCO2 (Venous) 39 mmHg (41-51); pH (Venous) 7.43 (7.31-7.41); pO2 (Venous) 118 mmHg
[2023-04-10 00:40] LABS: Acetaminophen < 2 ug/mL (10-30); Salicylate 5.1 mg/dL (<2.8)
[2023-04-10 00:47] LABS: HCG Quant, Pregnancy < 1 mIU/mL (1-3)
== END 2023-04-10 02:05 | disposition left against medical advice (07) ==
PROVIDERS: Registered Nurse Emergency; Emergency Provider Emergency Medicine Emergency Medical Services; PCP Nurse Practitioner Adult Health
DX: F19.130 Other psychoactive substance abuse with withdrawal, uncomplicated (principal); F10.120 Alcohol abuse with intoxication, uncomplicated; Y90.6 Blood alcohol level of 120-199 mg/100 ml; Z53.29 Procedure and treatment not carried out because of patient's decision for other reasons
CPT/HCPCS: 80053; 80307; 81025; 82805; 99283; 80320; 80329; 81003; 84443; 84702; 85025

== ENCOUNTER 2023-04-10 02:10 | Emergency (ER) | payer MEDICAID, SELFPAY ==
[2023-04-10 02:51] VITALS: BP 136/100; PULSE 85; RESP 16; TEMP 35.8; O2SAT 98
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
[2023-04-10 03:14] VITALS: RESP 18
[2023-04-10] MEDS: traZODone 50 MG TAB PO (05:04)
[2023-04-10] MEDS: Nicotine 21 MG/24 HR PATCH TD (05:04)
[2023-04-10 07:30] LABS: ETHANOL BLOOD 180.3 mg/dL (<10)
--- NOTE | 2023-04-10 08:01 | NUR.NOTE ---
Nursing Note: LATE ENTRY THE PT WAS IN ED ROOM4, THE PT ADMITTED TO ETOH USE AND THAT SHE WANTED TO LEAVE, SHE HAD BEEN IN AND OUT OF THE ROOM NUMEROUS TIMES AND HAD BEEN CALLING THE STATE POLICE DURING THE STAY (FIRST STAY) THE PT HAD STATED THE VSP TOLD HER THAT SHE COULD LEAVE. THE PT THEN WAS NO LONGER IN THE ROOM AND WAS NOT FOUND IN THE ED, PER HEMATOLOGY SUPERVISOR THE PT HAD GONE OUTSIDE. THE PT THEN RETURNED, SHE STATED THAT SHE DID NOT LEAVE THE HOSPITAL PROPERTY AND THAT IT WAS COLD AND NO ONE WAS ABLE TO PICK HER UP. THE PT STATED SHE WANTED TO LEAVE AND WALK HOME, THIS NURSE ADVISED THE PT THAT SHE WAS INTOXICATED AND WAS NOT ABLE TO WALK HOME THAT A SOBER RIDE HAD TO COME TO PICK HER UP. THE PT THEN AGREED TO STAY IN THE ROOM OVERNIGHT UNTIL THE AM, DRINKS AND FOOD GIVEN. THE PT WAS COOPERATIVE THE REST OF THE NIGHT. REPORT GIVEN TO DAYSHIFT. THE PT Was TO CALL FOR A RIDE HOME, LAB ETOH LEVEL WAS DRAWN, THE PT WAS TOLD IF SHE WAS UNABLE TO GET A RIDE THAT SHE COULD BE DISCHARGED IF HER ETOH LEVEL WAS TO A SOBER LIMIT.
== END 2023-04-10 09:23 | disposition left against medical advice (07) ==
PROVIDERS: Emergency Provider Emergency Medicine Emergency Medical Services; PCP Nurse Practitioner Adult Health
DX: F10.120 Alcohol abuse with intoxication, uncomplicated (principal); Y90.6 Blood alcohol level of 120-199 mg/100 ml; Z59.00 Homelessness unspecified; Z53.29 Procedure and treatment not carried out because of patient's decision for other reasons
CPT/HCPCS: 36415; 99283; 80320

== ENCOUNTER 2023-04-12 18:46 | Emergency (ER) | payer MEDICAID, SELFPAY ==
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
[2023-04-12 19:06] VITALS: RESP 20
== END 2023-04-12 19:08 | disposition home or self-care (01) ==
PROVIDERS: Emergency Provider Student in an Organized Health Care Education/Training Program; PCP Nurse Practitioner Adult Health
DX: F10.10 Alcohol abuse, uncomplicated (principal); F17.210 Nicotine dependence, cigarettes, uncomplicated
CPT/HCPCS: 99283

== ENCOUNTER 2023-04-13 21:47 | Emergency (ER) | payer MEDICAID, SELFPAY ==
--- NOTE | 2023-04-13 21:45 | DI.RAD_ITS ---
Exam(s) XR PORTABLE CHEST AP EXAM: XR PORTABLE CHEST AP CLINICAL HISTORY: cpr for heroin OD, right sided chest pain. TECHNIQUE: 2D digital imaging was performed. COMPARISON: CR,XR XR RIBS LT PA CHEST 3V from 12/09/2022 FINDINGS: Single AP portable view. Heart size is upper normal. The mediastinum is not widened. Lungs are clear. No infiltrates nor obvious pleural effusions. IMPRESSION: No acute pulmonary findings on this single AP portable view of the chest. DATA REPOSITORY: RADIATION DOSE DELIVERED:
[2023-04-13 21:49] VITALS: BP 139/111; PULSE 104; RESP 16; O2SAT 96
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
--- NOTE | 2023-04-13 22:04 | DI.VRAD_ITS ---
PROCEDURE INFORMATION: Exam: XR Chest Exam date and time: 04/13/2023 9:56 PM Age: 28 years old Clinical indication: Chest wall pain; Patient HX: Cpr post heroin od TECHNIQUE: Imaging protocol: Radiologic exam of the chest. Views: 1 view. COMPARISON: CR XR RIBS LT PA CHEST 3V 12/09/2022 11:44 AM FINDINGS: Lungs: No consolidation. No Mass Pleural spaces: No pleural effusion. No pneumothorax. Heart/Mediastinum: Unremarkable Bones/joints: No significant abnormality IMPRESSION: No acute findings. Dictated and Authenticated by: Samir Nunes MD. Ordering:YULISA Aldana MD
== END 2023-04-13 22:27 | disposition home or self-care (01) ==
PROVIDERS: Emergency Provider Emergency Medicine; PCP Nurse Practitioner Adult Health
DX: T40.2X1A Poisoning by other opioids, accidental (unintentional), initial encounter (principal); F10.10 Alcohol abuse, uncomplicated; R07.9 Chest pain, unspecified; F17.200 Nicotine dependence, unspecified, uncomplicated; F12.90 Cannabis use, unspecified, uncomplicated
CPT/HCPCS: 99284; 71045; 99283

== ENCOUNTER 2023-04-19 17:42 | Emergency (ER) | payer MEDICAID, SELFPAY ==
--- NOTE | 2023-04-19 17:30 | RT.EKG_ITS ---
APPROVED REPORT Exam: Resting ECG Reason for Exam: chest pain Patient Location: E HR:98 bpm ECG Measurements Heart Rate 98 AXIS UT 154 P 65 QRSd 89 QRS 63 QT 358 T 54 QTc 456 Conclusion Sinus rhythm...normal P axis, V-rate 60- 99 Narrow complex normal sinus rhythm at a rate of 98. Normal axis. Intervals within normal limits. N o acute injury pattern. Compared to prior dated last year no significant changes. Persistent T wave flattening in aVL.
--- NOTE | 2023-04-19 17:45 | DI.RAD_ITS ---
Exam(s) XR CHEST 2V PA LATERAL EXAM: XR CHEST 2V PA LATERAL CLINICAL HISTORY: Chest pain TECHNIQUE: 2D digital imaging was performed. COMPARISON: No exams were available for comparison FINDINGS: HEART: Normal size. Aorta: Not dilated. PULMONARY VASCULATURE: Normal. LUNGS: Clear. PLEURAL SPACE: No pleural effusion or pneumothorax. BONE:Unremarkable for age. Soft tissues: Unremarkable. IMPRESSION: No acute abnormality. DATA REPOSITORY: RADIATION DOSE DELIVERED:
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
[2023-04-19 17:52] VITALS: BP 166/114; PULSE 98; O2SAT 94
[2023-04-19 17:53] VITALS: BP 125/86; PULSE 91
[2023-04-19 17:56] VITALS: BP 128/75; PULSE 74; RESP 24; TEMP 35.7; O2SAT 98
[2023-04-19 18:20] VITALS: BP 166/94; PULSE 89; O2SAT 97
[2023-04-19 18:36] LABS: Abs Immature Grans 0.04 10^3/uL (0.0-0.06); Absolute Basophil Count 0.07 10^3/uL (0.0-0.2); Absolute Eosinophil Count 0.09 10^3/uL (0.0-0.7); Absolute Lymphocyte Count 2.06 10^3/uL (1.2-3.4); Absolute Neutrophil Count 6.67 10^3/uL (1.2-6.7); Basophils % 0.8; HCT 33.4 % (36.0-46.0); Immature Grans % 0.4; Lymphocytes % 22.1; MCH 31.9 pg (27.0-33.0); MCHC 32.9 % (32.0-36.0); MCV 97 fL (80-95); MPV 9.2 fL (8.0-11.0); Monocytes % 4.3; Neutrophils % 71.4; Platelet Count 319 10^3/uL (130-400); RBC 3.45 10^6/uL (3.93-5.22); RDW-SD 49.6 fL; WBC 9.33 10^3/uL (4.4-10.8)
[2023-04-19 19:03] LABS: Anion Gap 11.6 mmol/L (3-11); BUN 3 mg/dL (7-18); CO2 25.4 mmol/L (21.0-32.0); CREATININE 0.6 mg/dL (0.55-1.02); Calcium 8.9 mg/dL (8.5-10.1); Chloride 106 mmol/L (98-107); Estimated GFR 125.31 (mL/min/1.73m2); Glucose 100 mg/dL (74-106); Lipase 48 U/L (16-77); Potassium 3.3 mmol/L (3.5-5.1); Sodium 143 mmol/L (136-145); Troponin I < 50 ng/L (< or =60)
== END 2023-04-19 18:52 | disposition left against medical advice (07) ==
LOC: ER 18:52
PROVIDERS: Emergency Provider Emergency Medicine; PCP Nurse Practitioner Adult Health
DX: R07.9 Chest pain, unspecified (principal); F19.10 Other psychoactive substance abuse, uncomplicated; Z53.29 Procedure and treatment not carried out because of patient's decision for other reasons
CPT/HCPCS: 80048; 81025; 83690; 93005; 99285; 71046; 84484; 84703; 85025; 93010; 99284

== ENCOUNTER 2023-05-29 18:11 | Emergency (ER) | payer MEDICAID, SELFPAY ==
[2023-05-29 18:05] VITALS: BP 131/94; PULSE 94; RESP 24; TEMP 35.6; O2SAT 98
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
== END 2023-05-29 18:34 ==
PROVIDERS: Emergency Provider Emergency Medicine; PCP Nurse Practitioner Adult Health
DX: F10.120 Alcohol abuse with intoxication, uncomplicated (principal); R45.851 Suicidal ideations; F17.210 Nicotine dependence, cigarettes, uncomplicated; Z59.00 Homelessness unspecified
CPT/HCPCS: 99284

== ENCOUNTER 2023-06-14 16:46 | Emergency (ER) | payer MEDICAID, SELFPAY ==
[2023-06-14 16:50] VITALS: BP 113/72; PULSE 102; RESP 20; TEMP 36.5; O2SAT 98
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
== END 2023-06-14 17:18 ==
PROVIDERS: Emergency Provider Physician Assistant; PCP Nurse Practitioner Adult Health
DX: F10.120 Alcohol abuse with intoxication, uncomplicated (principal); T20.26XA Burn of second degree of forehead and cheek, initial encounter; T31.0 Burns involving less than 10% of body surface; F17.210 Nicotine dependence, cigarettes, uncomplicated; Z59.00 Homelessness unspecified; X08.8XXA Exposure to other specified smoke, fire and flames, initial encounter
CPT/HCPCS: 99283

== ENCOUNTER 2023-06-15 18:59 | Emergency (ER) | payer MEDICAID, SELFPAY ==
[2023-06-15 19:03] VITALS: BP 124/98; PULSE 99; RESP 18; TEMP 36.8; O2SAT 99
--- NOTE | 2023-06-15 19:15 | DI.CT_ITS ---
Exam(s) CT HEAD CERV SPINE FACIAL WO EXAM: CT HEAD CERV SPINE FACIAL WO CLINICAL HISTORY: head, neck, face pain- etoh on board. TECHNIQUE: Imaging Protocol: Axial computed tomography images with coronal and sagittal reformatted images were created and reviewed COMPARISON: CT CT HEAD FACIAL WO from 12/09/2022 FINDINGS: CT BRAIN: There are no skull fractures nor fluid in the visualized paranasal sinuses. There is no evidence of intracranial hemorrhage, mass effect, or shift of midline structures. There are no extra-axial fluid collections. The ventricles are not enlarged or shifted and there is no blo od within the ventricular system nor within the basal cisterns. CT MAXILLOFACIAL BONES: There is no evidence of facial fractures nor fluid in the visualized paranasal sinuses. there is no evidence of orbital blowout fracture. Retention cysts noted in the right maxillary sinus. No associated fluid level. Other paranasal sinu ses are clear. CT CERVICAL SPINE: There is no evidence of fracture nor listhesis. No significant prevertebral soft tissue swelling. N o facet malalignment evident. No significant osseous lesions evident. IMPRESSION: No acute intracranial findings on this noninfused CT scan of the brain. No evidence of facial nor orbital blowout fractures. No evidence of cervical spine fracture, malalignment, nor acute compromise of the cervical spinal can al. RADIATION DOSE DELIVERED: 2,501.88mGy.cm Total DLP 2,501.88mGy.cm Total DLP DATA REPOSITORY: All CT scans at this facility are submitted to the National Radiology Data Registry (NRDR) Dose Index Registry (DIR) with the [employer] ([employer]). RADIATION OPTIMIZATION: All CT scans at this facility use at least one of these dose optimization te chniques: automated exposure control; mA and/or kV adjustment per patient size (includes targeted exa ms where dose is matched to clinical indication); or iterative reconstruction.
--- NOTE | 2023-06-15 19:15 | DI.CT_ITS ---
Exam(s) CT THORACIC LUMBAR SPINE WO EXAM: CT THORACIC LUMBAR SPINE WO CLINICAL HISTORY: back pain, etoh on board. TECHNIQUE: Imaging Protocol: Axial computed tomography images with coronal and sagittal reformatted images were created and reviewed. CONTRAST MATERIAL: Intravenous: None COMPARISON: No exams were available for comparison FINDINGS: Thoracic spinal column: No evidence of fracture or listhesis. No facet malalignment. Disc spaces ex hibit normal height. No compromise of the canal. Lumbosacral spinal column: No evidence of fracture or listhesis. No facet malalignment. Disc spaces exhibit normal height at all levels. Facet joints unremarkable. IMPRESSION: No significant findings on the CT scan of the thoracic and lumbar spines. RADIATION DOSE DELIVERED: 1,274.07mGy.cm Total DLP DATA REPOSITORY: All CT scans at this facility are submitted to the National Radiology Data Registry (NRDR) Dose Index Registry (DIR) with the [employer] ([employer]). RADIATION OPTIMIZATION: All CT scans at this facility use at least one of these dose optimization te chniques: automated exposure control; mA and/or kV adjustment per patient size (includes targeted exa ms where dose is matched to clinical indication); or iterative reconstruction.
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
[2023-06-15 20:05] LABS: HCG Qual (Serum) Negative
--- NOTE | 2023-06-15 20:41 | DI.VRAD_ITS ---
PROCEDURE INFORMATION: Exam: CT Head Without Contrast Exam date and time: 06/15/2023 7:29 PM Age: 28 years old Clinical indication: Headache not specified; Neck pain; Patient HX: Head, neck, face pain, ETOH on board; Additional info: Patient was very combative and uncooperative. Best images possible. Could not remove handcuffs. TECHNIQUE: Imaging protocol: Computed tomography of the head without contrast. Radiation optimization: All CT scans at this facility use at least one of these dose optimization techniques: automated exposure control; mA and/or kV adjustment per patient size (includes targeted exams where dose is matched to clinical indication); or iterative reconstruction. COMPARISON: CT HEAD FACIAL WO 12/09/2022 11:40 AM FINDINGS: Brain: Normal. Cerebral ventricles: No ventriculomegaly. Paranasal sinuses: Minimal ethmoid sinus disease. Mastoid air cells: Normal as visualized. Bones/joints: Normal. Soft tissues: Mild left frontal soft tissue swelling/contusion for impression IMPRESSION: No acute intracranial abnormality. PROCEDURE INFORMATION: Exam: CT Maxillofacial Without Contrast Exam date and time: 06/15/2023 7:29 PM Age: 28 years old Clinical indication: Headache not specified; Neck pain; Patient HX: Head, neck, face pain, ETOH on board; Additional info: Patient was very combative and uncooperative. Best images possible. Could not remove handcuffs. TECHNIQUE: Imaging protocol: Computed tomography of the face without contrast. Radiation optimization: All CT scans at this facility use at least one of these dose optimization techniques: automated exposure control; mA and/or kV adjustment per patient size (includes targeted exams where dose is matched to clinical indication); or iterative reconstruction. COMPARISON: CT HEAD FACIAL WO 12/09/2022 11:40 AM FINDINGS: Orbital cavities: Orbits are normal. Globes are unremarkable. Bones/joints: Left frontal, ethmoid, and bilateral maxillary sinus disease. No acute fracture. Paranasal sinuses: See Bones/joints finding. Soft tissues: Mild left frontal soft tissue swelling/contusion. IMPRESSION: 1. No acute fracture. 2. Mild left frontal soft tissue swelling/contusion. PROCEDURE INFORMATION: Exam: CT Cervical Spine Without Contrast Exam date and time: 06/15/2023 7:29 PM Age: 28 years old Clinical indication: Headache not specified; Neck pain; Patient HX: Head, neck, face pain, ETOH on board; Additional info: Patient was very combative and uncooperative. Best images possible. Could not remove handcuffs. TECHNIQUE: Imaging protocol: Computed tomography of the cervical spine without contrast. Radiation optimization: All CT scans at this facility use at least one of these dose optimization techniques: automated exposure control; mA and/or kV adjustment per patient size (includes targeted exams where dose is matched to clinical indication); or iterative reconstruction. COMPARISON: CT HEAD CERV SPINE FACIAL WO 01/05/2019 8:06 PM FINDINGS: Bones/joints: No acute fracture. Normal alignment. No significant disc bulge or herniation. No severe spinal canal stenosis. No significant neural foraminal narrowing. Lungs: Lung apices are normal. Soft tissues: Normal. IMPRESSION: No acute findings. Dictated and Authenticated by: Tim Elias MD. Ordering:EARLINE Starkey MD
--- NOTE | 2023-06-15 20:45 | DI.VRAD_ITS ---
PROCEDURE INFORMATION: Exam: CT Thoracic Spine Without Contrast Exam date and time: 06/15/2023 7:38 PM Age: 28 years old Clinical indication: Low back pain; Pain in thoracic spine; Without myelpathy or radiculopathy; Patient HX: Back pain, etho on board; Additional info: Patient was very combative and uncooperative. Best images possible. Could not remove handcuffs. TECHNIQUE: Imaging protocol: Computed tomography of the thoracic spine without contrast. Radiation optimization: All CT scans at this facility use at least one of these dose optimization techniques: automated exposure control; mA and/or kV adjustment per patient size (includes targeted exams where dose is matched to clinical indication); or iterative reconstruction. COMPARISON: CT HEAD CERV SPINE FACIAL WO 06/15/2023 7:29 PM FINDINGS: Bones/joints: No acute fracture. Normal alignment. No significant disc bulge or herniation. No severe spinal canal stenosis. No significant neural foraminal narrowing. Soft tissues: Unremarkable. IMPRESSION: No acute thoracic spine abnormality. PROCEDURE INFORMATION: Exam: CT Lumbar Spine Without Contrast Exam date and time: 06/15/2023 7:38 PM Age: 28 years old Clinical indication: Low back pain; Pain in thoracic spine; Without myelpathy or radiculopathy; Patient HX: Back pain, etho on board; Additional info: Patient was very combative and uncooperative. Best images possible. Could not remove handcuffs. TECHNIQUE: Imaging protocol: Computed tomography of the lumbar spine without contrast. Radiation optimization: All CT scans at this facility use at least one of these dose optimization techniques: automated exposure control; mA and/or kV adjustment per patient size (includes targeted exams where dose is matched to clinical indication); or iterative reconstruction. COMPARISON: CT ABDOMEN PELVIS WO 09/16/2021 4:37 PM FINDINGS: Bones/joints: No acute fracture. Normal alignment. No significant disc bulge or herniation. No severe spinal canal stenosis. No significant neural foraminal narrowing. Kidneys and ureters: Nonobstructive left nephrolithiasis. Soft tissues: Unremarkable. IMPRESSION: No acute lumbar spine abnormality. Dictated and Authenticated by: Tim Elias MD. Ordering:EARLINE Starkey MD
== END 2023-06-15 20:57 ==
PROVIDERS: Emergency Provider Physician Assistant; PCP Nurse Practitioner Adult Health
DX: F10.120 Alcohol abuse with intoxication, uncomplicated (principal); S00.81XA Abrasion of other part of head, initial encounter; F17.210 Nicotine dependence, cigarettes, uncomplicated; Y35.813A Legal intervention involving manhandling, suspect injured, initial encounter
CPT/HCPCS: 82962; 99284; 70450; 70486; 72125; 72128; 72131; 84703

== ENCOUNTER 2023-06-26 19:48 | Emergency (ER) | payer MEDICAID, SELFPAY ==
[2023-06-26 20:00] VITALS: BP 124/83; PULSE 97; RESP 16; TEMP 36.3; O2SAT 97
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
== END 2023-06-26 21:13 ==
PROVIDERS: Emergency Provider Registered Nurse Emergency; PCP Nurse Practitioner Adult Health
DX: F10.929 Alcohol use, unspecified with intoxication, unspecified (principal); F14.90 Cocaine use, unspecified, uncomplicated; M79.604 Pain in right leg; M79.605 Pain in left leg; R10.9 Unspecified abdominal pain
CPT/HCPCS: 99285; 99283

== ENCOUNTER 2023-07-07 19:34 | Emergency (ER) | payer MEDICAID, SELFPAY ==
--- NOTE | 2023-07-07 19:15 | RT.EKG_ITS ---
APPROVED REPORT Exam: Resting ECG Reason for Exam: chest pain Patient Location: E HR:80 bpm ECG Measurements Heart Rate 80 AXIS ND 162 P 85 QRSd 84 QRS 84 QT 383 T 67 QTc 443 Conclusion Sinus rhythm\ 80 normal axis no stemi
[2023-07-07 19:37] VITALS: BP 142/90; PULSE 86; RESP 14; TEMP 37.2; O2SAT 99
[2023-07-07 19:57] VITALS: RESP 14
[2023-07-07 20:10] VITALS: BP 138/88; PULSE 80; RESP 14; O2SAT 99
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
== END 2023-07-07 20:12 | disposition home or self-care (01) ==
PROVIDERS: Emergency Provider Emergency Medicine; PCP Nurse Practitioner Adult Health
DX: S31.000A Unspecified open wound of lower back and pelvis without penetration into retroperitoneum, initial encounter; R62.50 Unspecified lack of expected normal physiological development in childhood; Z59.00 Homelessness unspecified; X58.XXXA Exposure to other specified factors, initial encounter; Z32.02 Encounter for pregnancy test, result negative; R07.9 Chest pain, unspecified
CPT/HCPCS: 81025; 93005; 99284; 93010; 99283